=== PATIENT | female | born 1935 | race Caucasian/White ===

== ENCOUNTER → 2016-04-22 | Outpatient (CLI) | payer OTHER ==
[~2016-04-22] MED LIST: CARB1CAP19 PO; CARB25TA16 PO; CHOL100027 PO; CYAN10005 PO; ESCI10TA17 PO; FLUD0.1T10 PO; LEVO88TA PO; LORA0.5T12 PO; MELA1TAB5 PO; PANT40TA PO; POLY335025 PO; RASA1TAB PO; SNM/25100 PO; SYN100 PO
[2016-04-22 10:55] LABS: BLOOD UREA NITROGEN 18 mg/dl (7-18); BUN/CREATININE RATIO 19.3 (10-20); CALCIUM 9.2 mg/dl (8.5-10.1); CARBON DIOXIDE 31 mmol/L (21-32); CHLORIDE 105 mmol/L (98-107); CREATININE 0.92 mg/dl (0.60-1.20); GLUCOSE 87 mg/dl (70-99); SODIUM 144 mmol/L (136-145)
== END ==
LOC: C.LABFOXMH 10:22
PROVIDERS: ATTEND Internal Medicine
DX: I95.1 Orthostatic hypotension (principal)

== ENCOUNTER → 2016-04-28 | Outpatient (CLI) | payer OTHER ==
[~2016-04-28] MED LIST changes: -CYAN10005 PO
== END ==
LOC: C.LABFOXMH 10:49
PROVIDERS: ATTEND Internal Medicine
DX: R05 Cough (principal)

== ENCOUNTER → 2016-06-04 | Day surgery (SDC) | payer OTHER ==
[2016-06-03 15:23] VITALS: BMI 26.0
[~2016-06-04] VITALS: Ht 162.6 cm; Wt 68.6 kg
[~2016-06-04] MED LIST changes: -CARB25TA16 PO; +LIDOCAINE HCL 2% 2 ML VIAL (20MG/ML) ONE; +MIDAZOLAM HCL 1 MG/ML 2ML VIAL ONE; +ONDANSETRON INJ 2 MG/ML 2 ML VIAL ONE; +PROPOFOL IV EMULSION 10 MG/ML 20 ML VIAL IV ONE; -SNM/25100 PO; +SODIUM CHLORIDE 0.9% 500ML 500 ML IV ONE; -SYN100 PO
[2016-06-04 08:22] VITALS: Ht 162.6 cm; Wt 68.6 kg
[2016-06-04 08:33] VITALS: TEMP 36.8
--- NOTE | 2016-06-04 08:43 | Endo History and Physical ---
History & Physical Date of Service: Jun 04, 2016. Chief Complaint: DYSPHAGIA, REFLUX Referring Physician: DR. LEW LUGO History of Present Illness 81 yo CF who presents for EGD secondary to dysphagia and GERD. Past Medical History Neurological Disorder Past Surgical History Hx Cardiac Surgery: No Hx Internal Defibrillator: No Hx Pacemaker: No Hx Post-Op Nausea and Vomiting: No Hx Cancer Surgery: No Hx Thoracic Surgery: No Hx Orthopedic: Yes (RT TKA, RIGHT SHOULDER ARTHROSCOY) Hx Urinary Tract Surgery: No Family History None Social History Smoking Status: Never Smoker Hx Substance Use: No Hx Alcohol Use: No Allergies Coded Allergies: Grass (Verified Allergy, Unknown, SNEEZING, RUNNY EYES, 06/03/16) Codeine (Verified Adverse Reaction, Intermediate, NAUSEA, PASSED OUT, 06/03) Current Medications Reported Home Medications Medications Dose Route/Sig Max Daily Dose Days Date Category Dose Instructions Kp Melatonin (Melatonin) 3 Mg Tab 1 Tab PO HS 06/03/16 Reported Rytary 23.75-95 mg (Carbidopa-Levodopa) 1 Cap Cap 1 Tab PO QID 06/03/16 Reported 6A 10A 2P 6P Lexapro (Escitalopram Oxalate) 10 Mg Tab 10 Mg PO QAM 06/03/16 Reported Synthroid (Levothyroxine Sodium) 88 Mcg Tab 88 Mcg PO QAM 06/03/16 Reported Florinef (Fludrocortisone Acetate) 0.1 Mg Tab 2 Tab PO QAM 04/13/13 Reported Miralax (Polyethylene Glycol 3350) 1 Pow Pow PO QAM 01/22/13 Reported Lorazepam 0.5 Mg Tab 1 Tab PO HS 12/01/12 Reported Protonix (Pantoprazole Sodium) 40 Mg Tab 40 Mg PO QAM 12/01/12 Reported Azilect (Rasagiline Mesylate) 1 Mg Tab 0.5 Mg PO QAM 11/05/12 Reported Vitamin D 1000 Unit (Cholecalciferol) 1,000 Unit Cap 2,000 Inter.unit PO QAM 09/17/11 Reported Vital Signs Weight (Kilograms): 68.64 Height (Feet): 5 Height (Inches): 4 Date Time Temp Pulse Resp B/P Pulse Ox O2 Delivery O2 Flow Rate FiO2 06/04/16 08:33 36.8 72 18 165/83 98 Room Air Physical Exam General Appearance: WD/WN, no apparent distress Respiratory/Chest: Auscultation: breath sounds normal Cardiovascular: Heart Auscultation: RRR Abdomen: Bowel Sounds: normal Inspection & Palpation: soft, non-distended, no tenderness, guarding & rebound Assessment and Plan Assessment: 81 yo CF who presents for EGD secondary to dysphagia and GERD. Plan: Proceed with EGD.
--- NOTE | 2016-06-04 09:47 | Discharge Instructions ---
Endoscopy Patient Instructions Date / Procedure(s) Performed Jun 04, 2016. EGD Allergy Information Coded Allergies: Grass (Verified Allergy, Unknown, SNEEZING, RUNNY EYES, 06/03/16) Codeine (Verified Adverse Reaction, Intermediate, NAUSEA, PASSED OUT, 06/03) Discharge Date / Findings Jun 04, 2016. Schatzki's Ring s/p dilation Hiatal hernia Medication Instructions OK to resume all medications today as prescribed. Reported Home Medications Medications Dose Route/Sig Max Daily Dose Days Date Category Dose Instructions Kp Melatonin (Melatonin) 3 Mg Tab 1 Tab PO HS 06/03/16 Reported Rytary 23.75-95 mg (Carbidopa-Levodopa) 1 Cap Cap 1 Tab PO QID 06/03/16 Reported 6A 10A 2P 6P Lexapro (Escitalopram Oxalate) 10 Mg Tab 10 Mg PO QAM 06/03/16 Reported Synthroid (Levothyroxine Sodium) 88 Mcg Tab 88 Mcg PO QAM 06/03/16 Reported Florinef (Fludrocortisone Acetate) 0.1 Mg Tab 2 Tab PO QAM 04/13/13 Reported Miralax (Polyethylene Glycol 3350) 1 Pow Pow PO QAM 01/22/13 Reported Lorazepam 0.5 Mg Tab 1 Tab PO HS 12/01/12 Reported Protonix (Pantoprazole Sodium) 40 Mg Tab 40 Mg PO QAM 12/01/12 Reported Azilect (Rasagiline Mesylate) 1 Mg Tab 0.5 Mg PO QAM 11/05/12 Reported Vitamin D 1000 Unit (Cholecalciferol) 1,000 Unit Cap 2,000 Inter.unit PO QAM 09/17/11 Reported Provider Instructions Activity Restrictions - No exercising or heavy lifting for 24 hours. - Do not drink alcohol the day of the procedure. - Do not drive a car or operate machinery until the day after the procedure. - Do not make any important decisions or sign important papers in 24 hours after the procedure. Following Day: - Return to full activity which may include returning to work/school. Diet Start your diet with liquids and light foods (jello, soup, juice, toast). Then eat your usual diet if not nauseated. Treatment For Common After Affects For mild abdominal pain, bloating, or excessive gas: - Rest - Eat lightly - Lie on right side Follow-Up Information Follow-up with DR. LEW LUGO as scheduled Anesthesia Information What You Should Know You have had a procedure that required some medicine to reduce anxiety and discomfort. This treatment is called moderate sedation. After receiving the treatment, you may be sleepy, but you will be able to breathe on your own. The effects of the treatment may last for several hours. Follow these instructions along with Activity/Diet recommendations noted above: * Do NOT do anything where dizziness or clumsiness would be dangerous. * Rest quietly at home today, then you can be up and about tomorrow. * Have a responsible person stay with you the rest of today. * You may have had an I.V. today. If so, you may take the dressing off later today. Recommendations Call your doctor if: * Trouble breathing * Continuous vomiting for more than 24 hours * Temperature above 101 degrees * Severe abdominal pain or bloating * Pain not relieved by pain medicine ordered * There is increased drainage or redness from any incision * A large amount of rectal bleeding greater than 2-3 tablespoons. (If you had a polyp/s removed or have hemorrhoids, a small amount of blood - from the rectum is to be expected.) * You have any unanswered questions or concerns. IN THE EVENT OF A SERIOUS EMERGENCY, GO TO THE NEAREST EMERGENCY ROOM Your discharge instructions were prepared by provider Santana Cornejo. Patient Instructions Signature Page Ellen Cabrera Patient (or Guardian) Signature/Date: I have read and understand the instructions given to me by my caregivers. Caregiver/RN/Doctor Signature/Date: The above-named patient and/or guardian has received patient instructions on this date. + Original Patient Signature Page (only) stays with chart. Please make copy for patient.
--- NOTE | 2016-06-04 09:47 | GI REPORT ---
Procedure Date: 06/04/2016 9:02 AM Procedure: Upper GI endoscopy Indications: Dysphagia Medicines: Monitored Anesthesia Care Complications: No immediate complications. Estimated Blood Loss: Estimated blood loss: none. Procedure: Pre-Anesthesia Assessment: - Prior to the procedure, a History and Physical was performed, and patient medications and allergies were reviewed. The patient's tolerance of previous anesthesia was also reviewed. The risks and benefits of the procedure and the sedation options and risks were discussed with the patient. All questions were answered, and informed consent was obtained. Prior Anticoagulants: The patient has taken no previous anticoagulant or antiplatelet agents. ASA Grade Assessment: III - A patient with severe systemic disease. After reviewing the risks and benefits, the patient was deemed in satisfactory condition to undergo the procedure. After obtaining informed consent, the endoscope was passed under direct vision. Throughout the procedure, the patient's blood pressure, pulse, and oxygen saturations were monitored continuously. The On-site loaner was introduced through the mouth, and advanced to the second part of duodenum. The upper GI endoscopy was accomplished without difficulty. The patient tolerated the procedure well. Findings: A mild Schatzki ring (acquired) was found at the gastroesophageal junction. A TTS dilator was passed through the scope. Dilation with a 15-16.5-18 mm balloon (to a maximum balloon size of 18 mm) dilator was performed. The dilation site was examined and showed mild improvement in luminal narrowing. A small hiatus hernia was present. The examined duodenum was normal. Impression: - Mild Schatzki ring. Dilated. - Small hiatus hernia. - Normal examined duodenum. - No specimens collected. Recommendation: - Resume previous diet. - Continue present medications. - Repeat the upper endoscopy PRN for retreatment. - Return to primary care physician as previously scheduled. Santana Cornejo DO 06/04/2016 9:46:39 AM This report has been signed electronically. Note Initiated On: 06/04/2016 9:02 AM I attest to the content of the Intraoperative Record and orders documented therein, exceptions below
--- NOTE | 2016-06-04 10:16 | Anesthesiology Progress Note ---
Anesthesia Post Op Note Date & Time Jun 04, 2016 at 10:16 Vital Signs Pain Intensity: 0 Vital Signs Past 12 Hours Date Time Temp Pulse Resp B/P Pulse Ox O2 Delivery O2 Flow Rate FiO2 06/04/16 10:03 78 18 144/85 95 Room Air 06/04/16 09:48 71 16 135/68 98 Room Air 06/04/16 08:33 36.8 72 18 165/83 98 Room Air Notes Mental Status: alert / awake / arousable, participated in evaluation Pt Amnestic to Procedure: Yes Nausea / Vomiting: adequately controlled Pain: adequately controlled Airway Patency, RR, SpO2: stable & adequate BP & HR: stable & adequate Hydration State: stable & adequate Anesthetic Complications: no major complications apparent
[2016-06-04 10:18] VITALS: BP 155/89; PULSE 68; O2SAT 95
== END | disposition home or self-care (01) ==
LOC: C.GI 07:56
PROVIDERS: ATTEND Internal Medicine
DX: K22.2 Esophageal obstruction (principal); K21.9 Gastro-esophageal reflux disease without esophagitis; R13.10 Dysphagia, unspecified; K44.9 Diaphragmatic hernia without obstruction or gangrene

== ENCOUNTER → 2016-08-16 | Outpatient (CLI) | payer OTHER ==
[~2016-08-16] MED LIST changes: -LIDOCAINE HCL 2% 2 ML VIAL (20MG/ML) ONE; -MIDAZOLAM HCL 1 MG/ML 2ML VIAL ONE; -ONDANSETRON INJ 2 MG/ML 2 ML VIAL ONE; -PROPOFOL IV EMULSION 10 MG/ML 20 ML VIAL IV ONE; -SODIUM CHLORIDE 0.9% 500ML 500 ML IV ONE
[2016-08-16 09:22] LABS: HEMATOCRIT 43.2 % (37-47); MEAN CORPUSCULAR HEMOGLOBIN 28.5 pg (25-34); MEAN CORPUSCULAR HGB CONC 31.7 g/dl (32-36); MEAN PLATELET VOLUME 10.7 fL (7.4-10.4); PLATELET COUNT 190 K/uL (130-400)
[2016-08-16 09:30] LABS: BLOOD UREA NITROGEN 15 mg/dl (7-18); BUN/CREATININE RATIO 18.9 (10-20); CARBON DIOXIDE 28 mmol/L (21-32); CHLORIDE 106 mmol/L (98-107); GLUCOSE 90 mg/dl (70-99); POTASSIUM 3.8 mmol/L (3.5-5.1); SODIUM 142 mmol/L (136-145)
[2016-08-16 09:36] LABS: CALCIUM 9.5 mg/dl (8.5-10.1)
[2016-08-16 09:41] LABS: THYROID STIMULATING HORMONE 0.718 uIu/ml (0.300-4.500)
== END | disposition home or self-care (01) ==
LOC: C.LABFOXMH 08:51
PROVIDERS: ATTEND Internal Medicine
DX: E01.8 Other iodine-deficiency related thyroid disorders and allied conditions (principal); I95.1 Orthostatic hypotension

== ENCOUNTER → 2016-12-22 | Outpatient (CLI) | payer OTHER ==
[2016-12-22 10:35] LABS: BLOOD UREA NITROGEN 15 mg/dl (7-18); BUN/CREATININE RATIO 17.6 (10-20); CALCIUM 9.5 mg/dl (8.5-10.1); CARBON DIOXIDE 32 mmol/L (21-32); CHLORIDE 106 mmol/L (98-107); CREATININE 0.83 mg/dl (0.60-1.20); GLUCOSE 90 mg/dl (70-99); SODIUM 140 mmol/L (136-145)
== END | disposition home or self-care (01) ==
LOC: C.LABFOXMH 09:34
PROVIDERS: ATTEND Internal Medicine
DX: I95.1 Orthostatic hypotension (principal)

== ENCOUNTER → 2017-01-04 | Outpatient (CLI) | payer OTHER ==
[2017-01-04 10:07] LABS: BLOOD UREA NITROGEN 12 mg/dl (7-18); CALCIUM 9.1 mg/dl (8.5-10.1); CARBON DIOXIDE 32 mmol/L (21-32); CHLORIDE 107 mmol/L (98-107); CREATININE 0.82 mg/dl (0.60-1.20); GLUCOSE 90 mg/dl (70-99); POTASSIUM 3.3 mmol/L (3.5-5.1); SODIUM 141 mmol/L (136-145)
== END | disposition home or self-care (01) ==
LOC: C.LABFOXMH 09:28
PROVIDERS: ATTEND Internal Medicine Hospice and Palliative Medicine
DX: R53.83 Other fatigue (principal)

== ENCOUNTER → 2017-03-14 | Outpatient (CLI) | payer OTHER ==
[2017-03-14 09:19] LABS: BLOOD UREA NITROGEN 19 mg/dl (7-18); BUN/CREATININE RATIO 21.7 (10-20); CALCIUM 9.3 mg/dl (8.5-10.1); CARBON DIOXIDE 27 mmol/L (21-32); CHLORIDE 104 mmol/L (98-107); CREATININE 0.86 mg/dl (0.60-1.20); GLUCOSE 111 mg/dl (70-99); POTASSIUM 3.8 mmol/L (3.5-5.1); SODIUM 139 mmol/L (136-145)
== END | disposition home or self-care (01) ==
LOC: C.LABFOXMH 08:55
PROVIDERS: ATTEND Internal Medicine Hospice and Palliative Medicine
DX: I95.1 Orthostatic hypotension (principal)

== ENCOUNTER 2017-04-10 13:05 | Emergency (ER) | payer OTHER ==
[~2017-04-10] VITALS: Ht 158.8 cm; Wt 69.4 kg
[2017-04-10 13:15] VITALS: TEMP 37.3; Ht 158.8 cm; Wt 69.4 kg
[2017-04-10] MEDS ORDERED: CYAN10005 PO (13:32)
--- NOTE | 2017-04-10 14:02 | EMERGENCY ROOM VISIT NOTE ---
History Report prepared by Wild: Emile Hernández Under the Supervision of: Dr. Nimco Brown D.O. First contact with patient: 13:33 Chief Complaint: COUGH Stated Complaint: COUGH History of Present Illness The patient is an 82 year old female who presents to the Emergency Room with complaints of a worsening cough for the past three days. The patient states that she is not bringing anything up when she coughs. She additionally notes that she has some chest pain, though this is after coughing. The patient denies any fevers, chills, leg swelling, leg pain, and abdominal pain. She has a history of Parkinson's, and she has never had pneumonia before or lung problems. Her family notes that she is usually hypotensive. The patient has never been a smoker, and she has gotten her flu shot and pneumonia shot. Source of History: patient, family Onset: three days ago Position: other (global) Quality: other (cough) Timing: worsening Associated Symptoms: + chest pain, No fevers, No chills, No abdominal pain Review of Systems See HPI for pertinent positives & negatives. A total of 10 systems reviewed and were otherwise negative. Past Medical & Surgical Medical Problems: (1) Cholecystectomy (2) Parkinson's disease Family History Patient reports no known family medical history. Social History Smoking Status: Never Smoker Alcohol Use: occasionally Marital Status: Housing Status: lives with family Current/Historical Medications Scheduled Carbidopa-Levodopa (Rytary 23.75-95 mg), 1 TAB PO QID Cholecalciferol (Vitamin D 1000 Unit), 2,000 INTER.UNIT PO QAM Cyanocobalamin (Vitamin B-12), 1,000 MCG PO DAILY Escitalopram (Lexapro), 10 MG PO QAM Fludrocortisone Acetate (Florinef), 3 TAB PO QAM Levothyroxine Sodium (Synthroid), 88 MCG PO QAM Lorazepam (Lorazepam), 1 TAB PO HS Melatonin (Kp Melatonin), 1 TAB PO HS Pantoprazole (Protonix), 40 MG PO QAM Polyethylene Glycol 3350 (Miralax), PO QAM Rasagiline Mesylate (Azilect), 0.5 MG PO QAM Allergies Coded Allergies: Grass (Verified Allergy, Unknown, SNEEZING, RUNNY EYES, 06/03/16) Codeine (Verified Adverse Reaction, Intermediate, NAUSEA, PASSED OUT, 2/16 /17) Physical Exam Vital Signs Date Time Temp Pulse Resp B/P (MAP) Pulse Ox O2 Delivery O2 Flow Rate FiO2 04/10/17 16:01 76 20 178/86 94 04/10/17 15:28 70 16 169/102 95 Room Air 04/10/17 13:57 73 18 159/103 94 Room Air 04/10/17 13:56 80 04/10/17 13:40 94 Room Air 04/10/17 13:15 37.3 116 20 175/87 97 Room Air Physical Exam HEENT: Head - normocephalic and atraumatic Pupils are equal, round, and reactive to light. Extraocular eye muscles are intact, and sclera are anicteric. Nose - moist nasal mucosa without discharge. Mouth - moist buccal mucosa. Oropharynx is nonerythematous and there is no tonsillar exudate or edema noted. Neck: Supple; no JVD, nuchal rigidity, cervical lymphadenopathy, or auscultated bruits. Heart: Regular rate and rhythm. There is a normal S1 and S2 with no murmurs, clicks, or gallops appreciated. Lungs: Clear to auscultation bilaterally with no wheezes, rales, or rhonchi. Abdomen: Soft, completely nontender, nondistended, with good bowel sounds. There are no palpable pulsatile masses or hepatosplenomegaly. There is no guarding, rigidity, or rebound noted. Extremities: No evidence of cyanosis, clubbing, or edema. There are easily palpable peripheral pulses. Skin: warm and dry with good turgor and no rashes. Medical Decision & Procedures ER Provider Diagnostic Interpretation: Radiology results as stated below per my review and the radiologist's interpretation: CHEST 2 VIEWS ROUTINE CLINICAL HISTORY: Persistent cough COMPARISON STUDY: 11/05/2012 FINDINGS: A presumed stimulator generator battery pack projects over the right hemithorax. The heart is at the upper limits of normal in size. There is no failure. There is no focal pulmonary consolidation. There are no pleural effusions.[ IMPRESSION: No active disease in the chest. Electronically signed by: Beny Nieves M.D. 04/10/2017 3:26 PM Dictated Date/Time: 04/10/2017 3:25 PM Laboratory Results 04/10/17 13:40 Red Blood Count 4.58, Mean Corpuscular Volume 89.7, Mean Corpuscular Hemoglobin 29.7, Mean Corpuscular Hemoglobin Concent 33.1, Mean Platelet Volume 10.4, Neutrophils (%) (Auto) 49.9, Lymphocytes (%) (Auto) 28.1, Monocytes (%) (Auto) 17.9, Eosinophils (%) (Auto) 3.5, Basophils (%) (Auto) 0.6, Neutrophils # (Auto ) 1.56, Lymphocytes # (Auto) 0.88, Monocytes # (Auto) 0.56, Eosinophils # (Auto ) 0.11, Basophils # (Auto) 0.02 04/10/17 13:40 Test 04/10/17 13:40 White Blood Count 3.13 K/uL (4.8-10.8) Red Blood Count 4.58 M/uL (4.2-5.4) Hemoglobin 13.6 g/dL (12.0-16.0) Hematocrit 41.1 % (37-47) Mean Corpuscular Volume 89.7 fL (80-100) Mean Corpuscular Hemoglobin 29.7 pg (25-34) Mean Corpuscular Hemoglobin Concent 33.1 g/dl (32-36) Platelet Count 148 K/uL (130-400) Mean Platelet Volume 10.4 fL (7.4-10.4) Neutrophils (%) (Auto) 49.9 % Lymphocytes (%) (Auto) 28.1 % Monocytes (%) (Auto) 17.9 % Eosinophils (%) (Auto) 3.5 % Basophils (%) (Auto) 0.6 % Neutrophils # (Auto) 1.56 K/uL (1.4-6.5) Lymphocytes # (Auto) 0.88 K/uL (1.2-3.4) Monocytes # (Auto) 0.56 K/uL (0.11-0.59) Eosinophils # (Auto) 0.11 K/uL (0-0.5) Basophils # (Auto) 0.02 K/uL (0-0.2) RDW Standard Deviation 45.5 fL (36.4-46.3) RDW Coefficient of Variation 13.8 % (11.5-14.5) Immature Granulocyte % (Auto) 0.0 % Immature Granulocyte # (Auto) 0.00 K/uL (0.00-0.02) Anion Gap 6.0 mmol/L (3-11) Est Creatinine Clear Calc Drug Dose 41.2 ml/min Estimated GFR () 61.9 Estimated GFR (Non- 53.4 BUN/Creatinine Ratio 16.6 (10-20) Calcium Level 9.1 mg/dl (8.5-10.1) Total Bilirubin 0.4 mg/dl (0.2-1) Aspartate Amino Transf (AST/SGOT) 23 U/L (15-37) Alanine Aminotransferase (ALT/SGPT) 12 U/L (12-78) Alkaline Phosphatase 109 U/L (45-117) Total Creatine Kinase 117 U/L (26-192) Creatine Kinase MB 1.9 ng/ml (0.5-3.6) Creatine Kinase MB Ratio 1.6 (0-3.0) Troponin I < 0.015 ng/ml (0-0.045) Pro-B-Type Natriuretic Peptide 422 pg/ml (0-1800) Total Protein 7.2 gm/dl (6.4-8.2) Albumin 3.6 gm/dl (3.4-5.0) Globulin 3.6 gm/dl (2.5-4.0) Albumin/Globulin Ratio 1.0 (0.9-2) Laboratory results per my review. ECG Indication: other (cough) Rate (beats per minute): 71 Rhythm: normal sinus Findings: no acute ischemic change, no ectopy ED Course 1352: Past medical records reviewed. The patient was evaluated in room A2. A complete history and physical exam was performed. An EKG was obtained. Chest x -ray was obtained and was unremarkable. Labs were drawn as above. 1546: Upon reevaluation, she is doing well. I discussed findings and results with her. She verbalized agreement of the treatment plan. She was discharged home. Medical Decision The patient is a 82 year old female who presents to the ED with a cough. Differential diagnosis includes bronchitis, pneumonia, and influenza Lab results: White blood cell count of 3.1, stable H&H, normal renal function, normal glucose, normal cardiac enzymes, and BNP 422 The patient presents to the emergency department with persistent cough. The patient has no fever or shortness of breath. She has no chest pain. Chest x-ray was unremarkable. The patient appears hemodynamically stable. She did not appear to have much cough while here in the emergency department. I've asked him to follow-up with Dr. Willams Medication Reconcilliation Current Medication List: was personally reviewed by me Blood Pressure Screening Patient's blood pressure: Elevated blood pressure Blood pressure disposition: Referred to PCP Impression Primary Impression: Cough Scribe Attestation The scribe's documentation has been prepared under my direction and personally reviewed by me in its entirety. I confirm that the note above accurately reflects all work, treatment, procedures, and medical decision making performed by me. Departure Information Dispostion Home / Self-Care Referrals Alecia Tavarez (PCP) Forms HOME CARE DOCUMENTATION FORM, IMPORTANT VISIT INFORMATION Patient Instructions My [facility] Additional Instructions Rest. Keep yourself well-hydrated. Sleep propped up. Follow up on . with Dr. Willams
[2017-04-10 14:07] LABS: BASO % 0.6 %; BASO ABS # 0.02 K/uL (0-0.2); COMPLETE YES; EOS % 3.5 %; HEMATOCRIT 41.1 % (37-47); LYMPH % 28.1 %; LYMPH ABS # 0.88 K/uL (1.2-3.4); MEAN CELL VOLUME 89.7 fL (80-100); MEAN CORPUSCULAR HEMOGLOBIN 29.7 pg (25-34); MEAN CORPUSCULAR HGB CONC 33.1 g/dl (32-36); MEAN PLATELET VOLUME 10.4 fL (7.4-10.4); MONO % 17.9 %; NEUT % 49.9 %; PLATELET COUNT 148 K/uL (130-400); RED BLOOD COUNT 4.58 M/uL (4.2-5.4); WHITE BLOOD COUNT 3.13 K/uL (4.8-10.8)
[2017-04-10 14:22] LABS: ALT/SGPT 12 U/L (12-78); AST/SGOT 23 U/L (15-37); BLOOD UREA NITROGEN 16 mg/dl (7-18); BUN/CREATININE RATIO 16.6 (10-20); CALCIUM 9.1 mg/dl (8.5-10.1); CARBON DIOXIDE 30 mmol/L (21-32); CHLORIDE 101 mmol/L (98-107); CREATININE 0.99 mg/dl (0.60-1.20); GLUCOSE 98 mg/dl (70-99); POTASSIUM 3.5 mmol/L (3.5-5.1); SODIUM 137 mmol/L (136-145)
[2017-04-10 14:27] LABS: ALKALINE PHOSPHATASE 109 U/L (45-117); CKMB/CK RATIO 1.6 (0-3.0)
--- NOTE | 2017-04-10 15:28 | DIAGNOSTIC IMAGING REPORT ---
CHEST 2 VIEWS ROUTINE CLINICAL HISTORY: Persistent cough COMPARISON STUDY: 11/05/2012 FINDINGS: A presumed stimulator generator battery pack projects over the right hemithorax. The heart is at the upper limits of normal in size. There is no failure. There is no focal pulmonary consolidation. There are no pleural effusions.[ IMPRESSION: No active disease in the chest. Electronically signed by: Beny Nieves M.D. 04/10/2017 3:26 PM Dictated Date/Time: 04/10/2017 3:25 PM
[2017-04-10 16:01] VITALS: BP 178/86; PULSE 76; O2SAT 94
== END 2017-04-10 16:02 | disposition home or self-care (01) ==
LOC: C.EDB 13:07 → C.EDA 16:02
DX: R05 Cough (principal); G20 Parkinson's disease

== ENCOUNTER 2017-05-29 13:54 | Inpatient (IN) | payer OTHER ==
[~2017-05-29] VITALS: Ht 157.5 cm; Wt 70.0 kg
[~2017-05-29 13:54] MED LIST changes: +CYAN10005 PO
[2017-05-29] MEDS ORDERED: ACETAMINOPHEN IV 650 MG in EMPTY BAG 0 ML IV STA (14:12)
[2017-05-29] MEDS ORDERED: SODIUM CHLORIDE 0.9% 1000ML 1,000 ML IV STA (14:12)
--- NOTE | 2017-05-29 14:20 | EMERGENCY ROOM VISIT NOTE ---
History Report prepared by Wild: Truong Cedeño Under the Supervision of: Dr. Analia Candelario M.D. First contact with patient: 13:57 Chief Complaint: FALL Stated Complaint: FALL/HIP PAIN History of Present Illness The patient is an 82 year old female who presents to the Emergency Room with complaints of constant, left hip pain beginning prior to arrival. The patient states she caught her toe on her 's wheelchair and fell onto her hip. She reports she can still move her hip, but it is tender to touch it. The patient notes she did not get pain medication in the ambulance. She denies hitting her head, losing consciousness, taking blood thinner, taking aspirin, and neck pain. The patient states two nurses helped her up from the ground, but she would have been able to get up on her own if needed. The patient's family states she received a call from [employer] about the fall, and she was told the patient seemed mildly altered. EMS reports the patient was brought to the ED because she was hypertensive after the fall. Pt states she is typically hypotensive. Source of History: patient Onset: prior to arrival Position: other (left hip) Timing: constant Associated Symptoms: No LOC, No neck pain Note: Per Corby: mild AMS Denies: hitting her head Review of Systems See HPI for pertinent positives & negatives. A total of 10 systems reviewed and were otherwise negative. Past Medical & Surgical Medical Problems: (1) Cholecystectomy (2) Hip fracture (3) Parkinson's disease Family History Gallbladder disease Social History Smoking Status: Never Smoker Alcohol Use: occasionally Marital Status: Housing Status: assisted living Occupation Status: retired Current/Historical Medications Scheduled Carbidopa-Levodopa (Rytary 23.75-95 mg), 1 TAB PO QID Cholecalciferol (Vitamin D 1000 Unit), 2,000 INTER.UNIT PO QAM Cyanocobalamin (Vitamin B-12), 1,000 MCG PO DAILY Escitalopram (Lexapro), 10 MG PO QAM Fludrocortisone Acetate (Florinef), 0.3 MG PO QAM Levothyroxine Sodium (Synthroid), 75 MCG PO DAILY Lorazepam (Lorazepam), 1 TAB PO HS Meloxicam (Mobic), 15 MG PO DAILY Metronidazole (Topical) (Metrocream), 1 APPLN TOP BID Midodrine (Midodrine HCl), 2.5 MG PO TID Pantoprazole (Protonix), 40 MG PO QAM Polyethylene Glycol 3350 (Miralax), PO QAM Potassium Chloride (Micro-K Ext Rel), 10 MEQ PO DAILY Rasagiline Mesylate (Rasagiline Mesylate), 0.5 MG PO QAM Allergies Coded Allergies: Grass (Verified Allergy, Unknown, SNEEZING, RUNNY EYES, 05/29/17) Codeine (Verified Adverse Reaction, Intermediate, NAUSEA, PASSED OUT, 05/29) Physical Exam Vital Signs Date Time Temp Pulse Resp B/P (MAP) Pulse Ox O2 Delivery O2 Flow Rate FiO2 05/29/17 18:31 71 162/92 93 Room Air 05/29/17 17:00 71 151/81 92 Room Air 05/29/17 16:00 79 18 176/98 95 Room Air 05/29/17 14:31 80 05/29/17 14:09 37.1 77 168/92 94 Room Air Physical Exam Vital signs reviewed. General: Elderly, chronically ill-appearing 82 year old female, in no significant distress. HEENT: No scleral icterus, PERRLA, neck supple. Atraumatic. Cardiovascular: Regular rate and rhythm, no extra sounds. Pulmonary: Clear to auscultation bilaterally, normal work of breathing. Abdomen: Soft, nontender, nondistended, positive bowel sounds. Musculoskeletal: Atraumatic, no peripheral edema. Tenderness to the low lumbar spine along the left paraspinous muscles. Tenderness to the left iliac crest. Full ROM of the left hip,with pain. Neurologic: Patient awake alert and oriented x 3, full strength in all 4 extremities. Cranial nerves 2 through 12 grossly intact. Patient has a spacey affect but answers all questions appropriately. Follows commands appropriately. Skin: Warm, dry, no rash Medical Decision & Procedures Laboratory Results Test 05/29/17 14:33 05/29/17 14:46 05/29/17 15:49 05/29/17 16:02 Est Creatinine Clear Calc Drug Dose 43.5 ml/min Total Bilirubin 0.6 mg/dl (0.2-1) Alanine Aminotransferase (ALT/SGPT) 12 U/L (12-78) Alkaline Phosphatase 78 U/L (45-117) Total Protein 7.0 gm/dl (6.4-8.2) Albumin 3.5 gm/dl (3.4-5.0) Bedside Troponin I < 0.030 ng/ml (0-0.045) Urine Color YELLOW Urine Appearance CLEAR (CLEAR) Urine pH 7.5 (4.5-7.5) Urine Specific [place] 1.006 (1.000-1.030) Urine Protein NEG (NEG) Urine Glucose (UA) NEG (NEG) Urine Ketones NEG (NEG) Urine Occult Blood NEG (NEG) Urine Nitrite NEG (NEG) Urine Bilirubin NEG (NEG) Urine Urobilinogen NEG (NEG) Urine Leukocyte Esterase NEG (NEG) Direct Bilirubin 0.2 mg/dl (0-0.2) Aspartate Amino Transf (AST/SGOT) 21 U/L (15-37) Laboratory results per my review. Medications Administered Medications (Trade) Dose Ordered Sig/Pravin Route Start Time Stop Time Status Last Admin Dose Admin Sodium Chloride 1,000 ml @ 125 mls/hr Q8H STAT IV 05/29/17 14:12 05/29/17 20:03 DC 05/29/17 14:34 125 MLS/HR Acetaminophen 650 mg/Empty Bag 65 ml @ 260 mls/hr NOW STAT IV 05/29/17 14:12 05/29/17 14:26 DC 05/29/17 14:35 260 MLS/HR Potassium Chloride (Klor-Con M10) 40 meq NOW STAT PO 05/29/17 17:20 05/29/17 18:27 DC 05/29/17 18:40 40 MEQ Hydromorphone HCl (Dilaudid Inj) 0.25 mg Q20M PRN IV 05/29/17 18:00 06/12/17 17:59 05/29/17 22:18 0.25 MG ECG Indication: weakness Rate (beats per minute): 80 Rhythm: normal sinus Findings: other (T-wave flattening in the inferior and anteriolateral leads. LVH. Likely previouse septal infarct. Poor baseline for interpretion.) Change: Patient's electrocardiogram interpreted by me. ED Course 1359: Past medical records reviewed. The patient was evaluated in room C01B. A complete history and physical examination was performed. 1412: Ordered Acetaminophen 650mg/Empty Bag 65ml @ 260mls/hr IV, Sodium Chloride 1000 ml @ 125 mls/hr IV Medical Decision DDx: Intracranial injury, cervical spine injury, intrathoracic injury, intra- abdominal injury, musculoskeletal injury. This pt was evaluated and appeared to be in no distress. IV access was obtained and lab work was drawn. Pt was place don the atlassian administrator. Pt was given IV acetaminophen, hydrated with NSS. XR performed and reveals a subcapital left femur fracture. Lumbar spine films were canceled as pt was not able to tolerate positioning. L knee XR was performed as pt c/o knee pain in XR. Head CT is negative for acute traumatic findings. Pt and family were advised of the findings. Pt will be evaluated for admission by the hospitalist service with orthopeadic consult. Head Trauma GCS Score: 15 Medication Reconcilliation Current Medication List: was personally reviewed by me Blood Pressure Screening Patient's blood pressure: Elevated blood pressure Blood pressure disposition: Referred to PCP Impression Primary Impression: Subcapital fracture of left femur Scribe Attestation The scribe's documentation has been prepared under my direction and personally reviewed by me in its entirety. I confirm that the note above accurately reflects all work, treatment, procedures, and medical decision making performed by me. Departure Information Referrals Ayo Willams M.D. (PCP) Patient Instructions My [facility]
[2017-05-29 14:50] LABS: BASO % 0.2 %; BASO ABS # 0.01 K/uL (0-0.2); EOS % 1.7 %; EOS ABS # 0.08 K/uL (0-0.5); HEMATOCRIT 39.8 % (37-47); HEMOGLOBIN 13.2 g/dL (12.0-16.0); IG# 0.01 K/uL (0.00-0.02); LYMPH % 20.4 %; LYMPH ABS # 0.94 K/uL (1.2-3.4); MEAN CELL VOLUME 88.4 fL (80-100); MEAN CORPUSCULAR HEMOGLOBIN 29.3 pg (25-34); MEAN CORPUSCULAR HGB CONC 33.2 g/dl (32-36); MEAN PLATELET VOLUME 10.7 fL (7.4-10.4); MONO % 9.8 %; MONO ABS # 0.45 K/uL (0.11-0.59); NEUT % 67.7 %; NEUT ABS # 3.11 K/uL (1.4-6.5); PLATELET COUNT 177 K/uL (130-400); RED CELL DISTRIBUTION WIDTH CV 13.4 % (11.5-14.5); RED CELL DISTRIBUTION WIDTH SD 43.6 fL (36.4-46.3)
[2017-05-29 15:19] LABS: ALBUMIN 3.5 gm/dl (3.4-5.0); CALCIUM 9.3 mg/dl (8.5-10.1); CREATININE 0.93 mg/dl (0.60-1.20)
[2017-05-29] MEDS ORDERED: PRMT25 PO (16:00)
[2017-05-29] MEDS ORDERED: LEVO75TA PO (16:00)
[2017-05-29] MEDS ORDERED: METR0.754 TOP (16:00)
[2017-05-29] MEDS ORDERED: POTA10CA28 PO (16:00)
[2017-05-29] MEDS ORDERED: RASA0.5T PO (16:00)
[2017-05-29] MEDS ORDERED: MELO-84 PO (16:00)
[2017-05-29 16:23] LABS: POTASSIUM 3.3 mmol/L (3.5-5.1)
--- NOTE | 2017-05-29 16:23 | DIAGNOSTIC IMAGING REPORT ---
HEAD WITHOUT CONTRAST (CT) CT DOSE: 623.48 mGy.cm HISTORY: Trauma CHI TECHNIQUE: Multiaxial CT images of the head were performed without the use of intravenous contrast. A dose lowering technique was utilized adhering to the principles of ALARA. Comparison: None. Findings: Opacified right sphenoid sinus. Mastoid air cells are clear. Operative changes consistent with bilateral electrode placement. Mild cerebral atrophy. No acute intracranial hemorrhage. Moderate chronic small vessel change throughout both cerebral hemispheres. The calvarium and skull base are intact. The ventricles and sulci are within normal limits. There is no mass, hematoma, midline shift, or acute infarct. Impression: No acute intracranial abnormality. Chronic and postoperative change. Opacified right sphenoid sinus. The above report was generated using voice recognition software. It may contain grammatical, syntax or spelling errors. Electronically signed by: Nasir Solorzano M.D. 05/29/2017 4:22 PM Dictated Date/Time: 05/29/2017 4:18 PM
[2017-05-29] MEDS ORDERED: MoRPHine SULFATE 2 MG/ML CARP IV PRN (16:30)
--- NOTE | 2017-05-29 16:55 | DIAGNOSTIC IMAGING REPORT ---
L HIP UNILATERAL 2 VIEWS CLINICAL HISTORY: L hip pain after fall trauma. Pain. COMPARISON: None. DISCUSSION: Slightly impacted subcapital fracture left hip. No evidence of dislocation. No evidence for acetabular protrusion. There is no evidence for soft tissue swelling. IMPRESSION: Slightly impacted subcapital fracture left hip. The above report was generated using voice recognition software. It may contain grammatical, syntax or spelling errors. Electronically signed by: Nasir Solorzano M.D. 05/29/2017 4:54 PM Dictated Date/Time: 05/29/2017 4:53 PM
--- NOTE | 2017-05-29 16:58 | DIAGNOSTIC IMAGING REPORT ---
L KNEE 1 OR 2 VIEWS ROUTINE CLINICAL HISTORY: L knee pain pain COMPARISON: None. DISCUSSION: The bones and joint spaces appear intact. There is no evidence of fracture, dislocation or bony disease. Mild degenerative change all major joint compartments. Chondrocalcinosis. No acute bony abnormality. IMPRESSION: Moderate degenerative change. Chondrocalcinosis. No acute bony abnormality. The above report was generated using voice recognition software. It may contain grammatical, syntax or spelling errors. Electronically signed by: Nasir Solorzano M.D. 05/29/2017 4:56 PM Dictated Date/Time: 05/29/2017 4:54 PM
[2017-05-29] MEDS ORDERED: POTASSIUM CHLORIDE 10 MEQ TABCR PO STA (17:20)
--- NOTE | 2017-05-29 17:52 | DIAGNOSTIC IMAGING REPORT ---
CHEST ONE VIEW PORTABLE CLINICAL HISTORY: fall trauma COMPARISON STUDY: 04/10/2017 FINDINGS: Mild stable cardiomegaly. Lungs are grossly clear. Mild left basilar atelectasis increased from the prior exam. IMPRESSION: Mild atelectasis left base. Chronic change. Otherwise negative study. The above report was generated using voice recognition software. It may contain grammatical, syntax or spelling errors. Electronically signed by: Nasir Solorzano M.D. 05/29/2017 5:51 PM Dictated Date/Time: 05/29/2017 5:50 PM
[2017-05-29] MEDS ORDERED: ONDANSETRON INJ 2 MG/ML 2 ML VIAL IV PRN (18:00)
[2017-05-29] MEDS ORDERED: SOD PHOSPHATE/SOD BIPHOSPHATE ENEMA 132 ML BTL PR PRN (18:00)
[2017-05-29] MEDS ORDERED: MAGNESIUM HYDROXIDE SUSP 30 ML UDC PO PRN (18:00)
[2017-05-29] MEDS ORDERED: POLYETHYLENE (MIRALAX) 17 GM PACK PO PRN (18:00)
[2017-05-29] MEDS ORDERED: NALOXONE HCL 0.4 MG/1 ML VIAL/CARP IV PRN (18:00)
[2017-05-29] MEDS ORDERED: HYDROmorphone INJ 0.5 MG/0.5 ML SYR IV PRN ×2 (18:00)
[2017-05-29] MEDS ORDERED: BISACODYL 10 MG SUPP PR PRN (18:00)
[2017-05-29 19:40] VITALS: BP 165/93; PULSE 66; TEMP 36.5; O2SAT 95
[2017-05-29] MEDS: D5W AND 1/2NSS 1,000 ML IV SCH (20:14)
--- NOTE | 2017-05-29 20:56 | Orthopedic Consultation ---
Orthopedic Consultation Date of Consultation: May 29, 2017. Attending Physician: Alethea Villagomez MD Reason for Consultation: Left hip fracture History of Present Illness Mrs. Cabrera is an 82 year old female who had a mechanical ground level fall this afternoon. She tripped over her 's wheelchair that she was pushing , and fell directly onto her left hip. She denies any other injury other than her left hip. She denies any dizziness, lightheadedness, or loss of consciousness. She had immediate pain and inability to bear weight on her left leg. Past Medical/Surgical History Medical Problems: (1) Cough Status: Acute Family History Gallbladder disease Social History Smoking Status: Never Smoker Marital Status: Housing Status: lives with family Allergies Coded Allergies: Grass (Verified Allergy, Unknown, SNEEZING, RUNNY EYES, 05/29/17) Codeine (Verified Adverse Reaction, Intermediate, NAUSEA, PASSED OUT, 05/29) Home Medications Scheduled Carbidopa-Levodopa (Rytary 23.75-95 mg), 1 TAB PO QID Cholecalciferol (Vitamin D 1000 Unit), 2,000 INTER.UNIT PO QAM Cyanocobalamin (Vitamin B-12), 1,000 MCG PO DAILY Escitalopram (Lexapro), 10 MG PO QAM Fludrocortisone Acetate (Florinef), 0.3 MG PO QAM Levothyroxine Sodium (Synthroid), 75 MCG PO DAILY Lorazepam (Lorazepam), 1 TAB PO HS Meloxicam (Mobic), 15 MG PO DAILY Metronidazole (Topical) (Metrocream), 1 APPLN TOP BID Midodrine (Midodrine HCl), 2.5 MG PO TID Pantoprazole (Protonix), 40 MG PO QAM Polyethylene Glycol 3350 (Miralax), PO QAM Potassium Chloride (Micro-K Ext Rel), 10 MEQ PO DAILY Rasagiline Mesylate (Rasagiline Mesylate), 0.5 MG PO QAM Current Inpatient Medications Current Inpatient Medications Medications (Trade) Dose Ordered Sig/Pravin Route Start Time Stop Time Status Last Admin Dose Admin Dextrose/Sodium Chloride 1,000 ml @ 75 mls/hr [id number] IV 05/29/17 20:00 06/28/17 19:59 05/29/17 20:14 75 MLS/HR Cefazolin Sodium 2000 mg/Dextrose 65 ml @ 120 mls/hr PREOP IV 05/30/17 06:00 05/31/17 05:59 UNV Ondansetron HCl (Zofran Inj) 4 mg Q6H PRN IV 05/29/17 18:00 06/28/17 17:59 Hydromorphone HCl (Dilaudid Inj) 0.25 mg Q20M PRN IV 05/29/17 18:00 06/12/17 17:59 Hydromorphone HCl (Dilaudid Inj) 0.5 mg Q20M PRN IV 05/29/17 18:00 06/12/17 17:59 Naloxone HCl (Narcan Inj) 0.1 mg PRN PRN IV 05/29/17 18:00 06/28/17 17:59 Senna/Docusate Sodium (Senokot S Tab) 2 tab HS PO 05/29/17 21:00 06/28/17 20:59 Polyethylene (Miralax Powder Packet) 17 gm DAILY PRN PO 05/29/17 18:00 06/28/17 17:59 Magnesium Hydroxide (Milk Of Magnesia Susp) 30 ml DAILY PRN PO 05/29/17 18:00 06/28/17 17:59 Bisacodyl (Dulcolax Supp) 10 mg DAILY PRN [place] 05/29/17 18:00 06/28/17 17:59 Sodium Biphosphate/ Sodium Phosphate (Fleet Enema) 132 ml PRN PRN [place] 05/29/17 18:00 Escitalopram Oxalate (Lexapro Tab) 10 mg QAM PO 05/30/17 09:00 06/29/17 08:59 Fludrocortisone Acetate (Florinef Tab) 0.3 mg QAM PO 05/30/17 09:00 06/29/17 08:59 Levothyroxine Sodium (Synthroid Tab) 75 mcg DAILYBB PO 05/30/17 06:00 06/29/17 05:59 Lorazepam (Ativan Tab) 0.5 mg HS PO 05/29/17 21:00 06/28/17 20:59 Midodrine (Proamatine Tab) 2.5 mg TID PO 05/29/17 21:00 06/28/17 20:59 UNV Pantoprazole Sodium (Protonix Tab) 40 mg QAM PO 05/30/17 09:00 06/29/17 08:59 Miscellaneous Information (Order Awaiting Action) 1 ea QID PO 05/29/17 21:00 06/28/17 20:59 Miscellaneous Information (Order Awaiting Action) 1 ea QS N/A 05/29/17 21:00 06/28/17 20:59 Non-Formulary Medication (Rasagiline Mesylate ) 0.5 mg QAM PO 05/30/17 09:00 06/29/17 08:59 UNV Physical Exam Date Time Temp Pulse Resp B/P (MAP) Pulse Ox O2 Delivery O2 Flow Rate FiO2 05/29/17 20:08 37.0 75 21 164/101 94 05/29/17 19:20 37.0 75 21 164/101 94 Room Air 05/29/17 18:31 71 162/92 93 Room Air 05/29/17 17:00 71 151/81 92 Room Air 05/29/17 16:00 79 18 176/98 95 Room Air 05/29/17 14:31 80 05/29/17 14:09 37.1 77 168/92 94 Room Air Left leg: Examination of the left hip and leg reveals no gross deformity on inspection. No significant shortening or rotational deformity of the left leg compared to the right. No significant pain in the left hip with log-roll of left leg. No skin lacerations or abrasions over the left hip. No significant swelling in the left thigh. Motor and sensory intact distally in tibial and peroneal nerve distributions, with 5/5 toe and ankle dorsiflexion and plantarflexion strength. Foot is warm and well perfused. No calf tenderness to palpation. General Appearance: no apparent distress Head: normocephalic, atraumatic Laboratory Results Last 24 Hours Test 05/29/17 14:33 05/29/17 14:46 05/29/17 15:49 05/29/17 16:02 White Blood Count 4.60 K/uL Red Blood Count 4.50 M/uL Hemoglobin 13.2 g/dL Hematocrit 39.8 % Mean Corpuscular Volume 88.4 fL Mean Corpuscular Hemoglobin 29.3 pg Mean Corpuscular Hemoglobin Concent 33.2 g/dl Platelet Count 177 K/uL Mean Platelet Volume 10.7 fL Neutrophils (%) (Auto) 67.7 % Lymphocytes (%) (Auto) 20.4 % Monocytes (%) (Auto) 9.8 % Eosinophils (%) (Auto) 1.7 % Basophils (%) (Auto) 0.2 % Neutrophils # (Auto) 3.11 K/uL Lymphocytes # (Auto) 0.94 K/uL Monocytes # (Auto) 0.45 K/uL Eosinophils # (Auto) 0.08 K/uL Basophils # (Auto) 0.01 K/uL RDW Standard Deviation 43.6 fL RDW Coefficient of Variation 13.4 % Immature Granulocyte % (Auto) 0.2 % Immature Granulocyte # (Auto) 0.01 K/uL Sodium Level 139 mmol/L Potassium Level mmol/L 3.3 mmol/L Chloride Level 103 mmol/L Carbon Dioxide Level 26 mmol/L Anion Gap 11.0 mmol/L Blood Urea Nitrogen 16 mg/dl Creatinine 0.93 mg/dl Est Creatinine Clear Calc Drug Dose 43.5 ml/min Estimated GFR () 66.8 Estimated GFR (Non- 57.6 BUN/Creatinine Ratio 17.3 Random Glucose 102 mg/dl Calcium Level 9.3 mg/dl Magnesium Level mg/dl 2.1 mg/dl Total Bilirubin 0.6 mg/dl Direct Bilirubin mg/dl 0.2 mg/dl Aspartate Amino Transf (AST/SGOT) U/L 21 U/L Alanine Aminotransferase (ALT/SGPT) 12 U/L Alkaline Phosphatase 78 U/L Total Protein 7.0 gm/dl Albumin 3.5 gm/dl Bedside Troponin I < 0.030 ng/ml Urine Color YELLOW Urine Appearance CLEAR Urine pH 7.5 Urine Specific [place] 1.006 Urine Protein NEG Urine Glucose (UA) NEG Urine Ketones NEG Urine Occult Blood NEG Urine Nitrite NEG Urine Bilirubin NEG Urine Urobilinogen NEG Urine Leukocyte Esterase NEG Radiology: Left hip and knee Xrays were independently reviewed by me. Hip Xrays show a valgus-impacted femoral neck fracture. Cross-table lateral is suboptimal and very difficult to see along the femoral neck, but no obvious apex anterior angulation. Knee Xrays show mild tricompartmental degenerative change, but joint spaces overall well maintained. Chondrocalcinosis noted in the medial compartment. Assessment & Plan (1) Fracture of femoral neck, left Assessment & Plan: Mrs. Cabrera has a left hip valgus-impacted femoral neck fracture. The lateral Xray is suboptimal and difficult to interpret, but no obvious significant displacement. She denies significant pain in the hip with log-roll of the leg, suggesting relative stability of the fracture pattern. She may therefore be a good candidate for CRPP. We briefly discussed CRPP vs hip hemiarthroplasty, including the pros and cons of each approach. This will be discussed further with her by her surgical team tomorrow. NPO after midnight tonight for surgery. I am covering Orthopedic Surgery call for Dr. Cabrera, who is unavailable. Alex Hess MD Problem Qualifiers (1) Fracture of femoral neck, left: Encounter type: initial encounter Fracture type: closed Qualified Codes: S72.002A - Fracture of unspecified part of neck of left femur, initial encounter for closed fracture
[2017-05-29] MEDS ORDERED: MIDODRINE 2.5 MG TAB PO SCH (21:00)
[2017-05-29] MEDS ORDERED: BACITRACIN OINT 15 GM TUBE EXT ONE (21:15)
[2017-05-29 21:55] VITALS: BP 132/82; PULSE 76
[2017-05-29 22:00] VITALS: BMI 28.2
[2017-05-29] MEDS: LORAZEPAM 0.5 MG TAB PO SCH (22:01)
[2017-05-29] MEDS: RYTARY PO SCH (22:02)
[2017-05-29] MEDS: DOCUSATE SODIUM/SENNA 50/8.6MG TAB PO SCH (22:02)
--- NOTE | 2017-05-29 22:35 | History and Physical ---
History & Physical Date & Time of Service: May 29, 2017 at 22:17 Chief Complaint: Hip Fracture Primary Care Physician: Ayo Willams M.D. History of Present Illness Source: patient, family This patient is an 82-year-old female with history of Parkinson's disease with deep brain stimulator in place, chronic diastolic CHF, hypothyroidism, orthostatic hypotension with syncope, osteopenia, GERD, and hepatic cysts, who presents to the ER after sustaining a mechanical fall resulting in a left hip valgus impacted femoral neck fracture. She reports she accidentally tripped on her 's wheelchair and sustained a fall. She did have a little bit of pain in the right elbow but that has since gone away. She has no other injuries. Did not lose consciousness or hit her head. She denies any cardiac issues. She reports she can easily go up and down a flight of stairs without chest pain or shortness of breath. Review of the records shows she had a cardiac catheterization in November 2012 for dyspnea of unknown etiology. Her left heart cath revealed clean coronary arteries, her right heart cath was also normal. Her ECG here shows LVH, but is otherwise normal. Constitutional: No problem reported Eyes: No problem reported ENT: No problem reported Respiratory: No shortness of breath, No dyspnea on exertion Cardiovascular: No chest pain Breast: No problem reported Abdomen: No problem reported Musculoskeletal: + joint pain (Left hip), chronic neck pain Female : No problem reported Neurologic: No problem reported Psychiatric: No problem reported Heme: No problem reported Endo: No problem reported Skin: No problem reported All Other Systems: Reviewed and Negative Objective - Hospitalist Objective Vital Signs Date Time Temp Pulse Resp B/P (MAP) Pulse Ox O2 Delivery O2 Flow Rate FiO2 05/29/17 20:08 37.0 75 21 164/101 94 05/29/17 19:20 37.0 75 21 164/101 94 Room Air 05/29/17 18:31 71 162/92 93 Room Air 05/29/17 17:00 71 151/81 92 Room Air 05/29/17 16:00 79 18 176/98 95 Room Air 05/29/17 14:31 80 05/29/17 14:09 37.1 77 168/92 94 Room Air Physical Exam General Appearance: WD/WN, no apparent distress Eyes: normal inspection, PERRL, EOMI, sclerae normal ENT: hearing grossly normal, pharynx normal Neck: supple, no adenopathy, thyroid normal, no carotid bruits, trachea midline Respiratory/Chest: lungs clear, normal breath sounds, no respiratory distress, no accessory muscle use, right anterior chest wall the subclavian space with palpable deep brain stimulator box in place Cardiovascular: regular rate, rhythm, no edema, no gallop, no JVD, no murmur Abdomen: normal bowel sounds, non tender, soft, no organomegaly, no pulsatile mass Extremities: no pedal edema (With good cap refill, sensation intact to light touch in the feet and toes bilaterally), + pertinent finding (Positive tenderness to palpation over the left proximal femur, no ecchymosis or edema) Neurologic/Psychiatric: alert, normal mood/affect, oriented x 3 Skin: normal color, warm/dry, no rash Lymphatic: no adenopathy Past Medical/Surgical History PMH: Parkinson's disease with deep brain stimulator in place Chronic diastolic CHF Hypothyroidism Orthostatic hypotension with syncope Osteopenia GERD with history of dilation of Schatzki's ring Anxiety disorder Hepatic cysts PSH: Cholecystectomy Right TKA Right rotator cuff repair Deep brain stimulator implanted Family History Gallbladder disease Noncontributory due to advanced age Social History Smoking Status: Never Smoker Alcohol Use: none Drug Use: none Marital Status: Housing status: lives with significant other Immunizations History of Influenza Vaccine: Yes Influenza Vaccine Date: Feb 07, 2012 History of Tetanus Vaccine?: Yes Tetanus Immunization Date: Nov 06, 2008 History of Pneumococcal: Yes Pneumococcal Date: Nov 07, 2011 History of Hepatitis B Vaccine: Unknown Multi-Drug Resistant Organisms History of MDRO: No Allergies Coded Allergies: Grass (Verified Allergy, Unknown, SNEEZING, RUNNY EYES, 05/29/17) Codeine (Verified Adverse Reaction, Intermediate, NAUSEA, PASSED OUT, 05/29) Home Medications Scheduled Carbidopa-Levodopa (Rytary 23.75-95 mg), 1 TAB PO QID Cholecalciferol (Vitamin D 1000 Unit), 2,000 INTER.UNIT PO QAM Cyanocobalamin (Vitamin B-12), 1,000 MCG PO DAILY Escitalopram (Lexapro), 10 MG PO QAM Fludrocortisone Acetate (Florinef), 0.3 MG PO QAM Levothyroxine Sodium (Synthroid), 75 MCG PO DAILY Lorazepam (Lorazepam), 1 TAB PO HS Meloxicam (Mobic), 15 MG PO DAILY Metronidazole (Topical) (Metrocream), 1 APPLN TOP BID Midodrine (Midodrine HCl), 2.5 MG PO TID Pantoprazole (Protonix), 40 MG PO QAM Polyethylene Glycol 3350 (Miralax), PO QAM Potassium Chloride (Micro-K Ext Rel), 10 MEQ PO DAILY Rasagiline Mesylate (Rasagiline Mesylate), 0.5 MG PO QAM Physical Exam Vital Signs Date Time Temp Pulse Resp B/P (MAP) Pulse Ox O2 Delivery O2 Flow Rate FiO2 05/29/17 20:08 37.0 75 21 164/101 94 05/29/17 19:20 37.0 75 21 164/101 94 Room Air 05/29/17 18:31 71 162/92 93 Room Air 05/29/17 17:00 71 151/81 92 Room Air 05/29/17 16:00 79 18 176/98 95 Room Air 05/29/17 14:31 80 05/29/17 14:09 37.1 77 168/92 94 Room Air Diagnostics Laboratory Results Results Past 24 Hours Test 05/29/17 14:33 05/29/17 14:46 05/29/17 15:49 05/29/17 16:02 Range/Units White Blood Count 4.60 4.8-10.8 K/uL Red Blood Count 4.50 4.2-5.4 M/uL Hemoglobin 13.2 12.0-16.0 g/dL Hematocrit 39.8 37-47 % Mean Corpuscular Volume 88.4 80-100 fL Mean Corpuscular Hemoglobin 29.3 25-34 pg Mean Corpuscular Hemoglobin Concent 33.2 32-36 g/dl Platelet Count 177 130-400 K/uL Mean Platelet Volume 10.7 7.4-10.4 fL Neutrophils (%) (Auto) 67.7 % Lymphocytes (%) (Auto) 20.4 % Monocytes (%) (Auto) 9.8 % Eosinophils (%) (Auto) 1.7 % Basophils (%) (Auto) 0.2 % Neutrophils # (Auto) 3.11 1.4-6.5 K/uL Lymphocytes # (Auto) 0.94 1.2-3.4 K/uL Monocytes # (Auto) 0.45 0.11-0.59 K/uL Eosinophils # (Auto) 0.08 0-0.5 K/uL Basophils # (Auto) 0.01 0-0.2 K/uL RDW Standard Deviation 43.6 36.4-46.3 fL RDW Coefficient of Variation 13.4 11.5-14.5 % Immature Granulocyte % (Auto) 0.2 % Immature Granulocyte # (Auto) 0.01 0.00-0.02 K/uL Sodium Level 139 136-145 mmol/L Potassium Level 3.3 3.5-5.1 mmol/L Chloride Level 103 98-107 mmol/L Carbon Dioxide Level 26 21-32 mmol/L Anion Gap 11.0 3-11 mmol/L Blood Urea Nitrogen 16 7-18 mg/dl Creatinine 0.93 0.60-1.20 mg/dl Est Creatinine Clear Calc Drug Dose 43.5 ml/min Estimated GFR () 66.8 Estimated GFR (Non- 57.6 BUN/Creatinine Ratio 17.3 10-20 Random Glucose 102 70-99 mg/dl Calcium Level 9.3 8.5-10.1 mg/dl Magnesium Level 2.1 1.8-2.4 mg/dl Total Bilirubin 0.6 0.2-1 mg/dl Direct Bilirubin 0.2 0-0.2 mg/dl Aspartate Amino Transf (AST/SGOT) 21 15-37 U/L Alanine Aminotransferase (ALT/SGPT) 12 12-78 U/L Alkaline Phosphatase 78 45-117 U/L Total Protein 7.0 6.4-8.2 gm/dl Albumin 3.5 3.4-5.0 gm/dl Bedside Troponin I < 0.030 0-0.045 ng/ml Urine Color YELLOW Urine Appearance CLEAR CLEAR Urine pH 7.5 4.5-7.5 Urine Specific [place] 1.006 1.000-1.030 Urine Protein NEG NEG Urine Glucose (UA) NEG NEG Urine Ketones NEG NEG Urine Occult Blood NEG NEG Urine Nitrite NEG NEG Urine Bilirubin NEG NEG Urine Urobilinogen NEG NEG Urine Leukocyte Esterase NEG NEG Microbiology Results 05/29/17 MRSA DNA Surveillance Screen, Received Pending Diagnostic Radiology Chest x-ray with mild atelectasis at the left base, deep brain stimulator implant in place-images personally reviewed by me Knee x-ray with osteoarthritis-image reviewed by me Left hip with impacted femoral neck fracture-images reviewed by me CT the head with: Opacified right sphenoid sinus. Mastoid air cells are clear. Operative changes consistent with bilateral electrode placement. Mild cerebral atrophy. No acute intracranial hemorrhage. Moderate chronic small vessel change throughout both cerebral hemispheres. The calvarium and skull base are intact. The ventricles and sulci are within normal limits. There is no mass, hematoma, midline shift, or acute infarct. Impression: No acute intracranial abnormality. Chronic and postoperative change. Opacified right sphenoid sinus. EKG Normal sinus rhythm, LVH, no acute ischemic changes Impression Assessment and Plan This patient is an 82-year-old female with history of Parkinson's disease with deep brain stimulator in place, chronic diastolic CHF, hypothyroidism, orthostatic hypotension with syncope, osteopenia, GERD, anxiety disorder, and hepatic cysts, who presents to the ER after sustaining a mechanical fall resulting in a left hip valgus impacted femoral neck fracture. She reports she accidentally tripped on her 's wheelchair and sustained a fall. She did have a little bit of pain in the right elbow but that has since gone away. She has no other injuries. Did not lose consciousness or hit her head. She denies any cardiac issues. She reports she can easily go up and down a flight of stairs without chest pain or shortness of breath. Review of the records shows she had a cardiac catheterization in November 2012 for dyspnea of unknown etiology. Her left heart cath revealed clean coronary arteries, her right heart cath was also normal. Her ECG here shows LVH, but is otherwise normal. Left hip fracture-after mechanical fall, likely an osteoporotic fracture with fall from standing height. She had a normal cardiac catheterization 4 years ago that was completely normal. She has no cardiopulmonary symptoms and can easily achieve 4 METS. She is at average risk to undergo this intermediate risk surgery and should therefore proceed with surgery as planned. She does carry a diagnosis of chronic diastolic CHF and her fluid status and renal function should be monitored closely in the perioperative period. -Orthopedic surgery consultation requested and appreciated -Ancef prior to surgery -N.p.o. after midnight except for meds-would recommend she take her Florinef and midodrine in the morning to prevent hypotension -Consult anesthesia-she may need to have her DBS turned off-I asked her daughter to bring in the device from home with which to do this -Pain control with hydromorphone -DVT prophylaxis as per orthopedics -Follow CBC postop -Check vitamin D in the morning -Restart home p.o. vitamin D after surgery, consider Forteo or Fosamax or Prolia , will need DEXA scan within 6 months -Will need PT/OT consultations postoperatively Parkinson's disease-stable with DBS in place -Anesthesia to evaluate to see if DBS needs to be turned off -Continue Azilect and Rytary-her daughter will bring in medications from home as these are not available here Orthostatic hypotension with history of syncope-stable -Continue Florinef and midodrine -Consider stress dose steroids has hypotension postoperatively Chronic diastolic CHF-no evidence of volume overload, is not on diuretics at home -Observe for changes in fluid status postoperatively Hypothyroidism-last TSH checked 1 year ago -Check TSH in the morning -Continue home dose of levothyroxine for now GERD with history of Schatzki's ring being dilated 2016-stable -Continue Protonix Anxiety disorder-stable -Continue Lorazepam as needed and Lexapro Prophylaxis-SCDs for now Disposition admitted to medical/surgical floor-will need PT/OT evaluations and possible rehab placement Full code Level of Care Med/Surg Resuscitation Status FULL RESUSCITATION VTE Prophylaxis VTE Risk Assessment Done? Y/N: Yes Risk Level: Moderate Given or contraindicated: SCD's Social Service Consult Lives in Personal Care Additional Copies To Ayo Willams M.D.
--- NOTE | 2017-05-29 23:00 | DIAGNOSTIC IMAGING REPORT ---
L HIP UNILATERAL 1 VIEW CLINICAL HISTORY: lateral view of hip, unable to access fx on previous lateral XR fracture COMPARISON: Hip same date DISCUSSION: High probability of a subcapital fracture left hip. There is no evidence for soft tissue swelling. IMPRESSION: High probability of a subcapital fracture left hip The above report was generated using voice recognition software. It may contain grammatical, syntax or spelling errors. Electronically signed by: Nasir Solorzano M.D. 05/29/2017 10:59 PM Dictated Date/Time: 05/29/2017 10:57 PM
--- NOTE | 2017-05-29 23:01 | DIAGNOSTIC IMAGING REPORT ---
L FEMUR 2 VIEWS ROUTINE CLINICAL HISTORY: s/p fall, femoral neck fracture COMPARISON: None. DISCUSSION: The bones and joint spaces appear intact. There is no evidence of fracture, dislocation or bony disease. There is no evidence for soft tissue swelling. Subcapital fracture left hip is again noted IMPRESSION: Subcapital fracture left hip. The Remainder of the femur is negative. The above report was generated using voice recognition software. It may contain grammatical, syntax or spelling errors. Electronically signed by: Nasir Solorzano M.D. 05/29/2017 11:00 PM Dictated Date/Time: 05/29/2017 10:59 PM
[2017-05-29 23:15] VITALS: BP 145/84; PULSE 67; TEMP 36.8; O2SAT 92
[2017-05-30] VITALS (14 sets, daily range): BP systolic 77–170; BP diastolic 47–106; PULSE 70–77; TEMP 36.2–36.8; O2SAT 93–99
[2017-05-30 05:48] LABS: BASO % 0.6 %; BASO ABS # 0.02 K/uL (0-0.2); EOS % 6.5 %; EOS ABS # 0.22 K/uL (0-0.5); HEMATOCRIT 37.8 % (37-47); HEMOGLOBIN 12.7 g/dL (12.0-16.0); IG# 0.02 K/uL (0.00-0.02); LYMPH % 27.1 %; LYMPH ABS # 0.92 K/uL (1.2-3.4); MEAN CELL VOLUME 87.1 fL (80-100); MEAN CORPUSCULAR HEMOGLOBIN 29.3 pg (25-34); MEAN CORPUSCULAR HGB CONC 33.6 g/dl (32-36); MEAN PLATELET VOLUME 9.6 fL (7.4-10.4); MONO % 11.2 %; MONO ABS # 0.38 K/uL (0.11-0.59); NEUT ABS # 1.83 K/uL (1.4-6.5); PLATELET COUNT 144 K/uL (130-400); RED CELL DISTRIBUTION WIDTH CV 13.4 % (11.5-14.5); WHITE BLOOD COUNT 3.39 K/uL (4.8-10.8)
[2017-05-30] MEDS ORDERED: CEFAZOLIN 2000MG IV PUSH 15 ML IV SCH (06:00)
[2017-05-30] MEDS ORDERED: CEFAZOLIN IV 2,000 MG in DEXTROSE 5% 50ML 50 ML IV SCH (06:00)
[2017-05-30] MEDS: LEVOTHYROXINE 75 MCG TAB PO SCH (06:14)
[2017-05-30] MEDS: RYTARY PO SCH ×4 (06:15→19:36)
[2017-05-30 06:18] LABS: CALCIUM 8.5 mg/dl (8.5-10.1); CREATININE 0.8 mg/dl (0.60-1.20); POTASSIUM 3.3 mmol/L (3.5-5.1)
[2017-05-30] MEDS ORDERED: BUPIVACAINE 0.5 % 5 MG/1 ML PF 10ML VIAL ONE (07:27)
--- NOTE | 2017-05-30 07:55 | Orthopedic Progress Note ---
Orthopedic Progress Note Date of Service May 30, 2017. Subjective Reports: feeling well, Denies: chest pain, SOB, nausea / vomiting, light headedness, calf pain Additional Notes: PATIENT CURRENTLY COMFORTABLE AT REST. SHE HAS SOME PAIN WITH MOVEMENT AND REPOSITIONING. Objective calves soft nontender, N/V intact, capillary refill less than 2 sec., A&O x3, toes mobile LLE NVSI +EHL/FHL/TA/GS SILT grossly, +2 DP pulse, compartments soft NT, skin intact, +straight leg raise. Date Time Temp Pulse Resp B/P (MAP) Pulse Ox O2 Delivery O2 Flow Rate FiO2 05/30/17 07:40 36.6 72 15 170/100 (123) 93 Room Air 161/99 (119) 05/30/17 03:20 36.8 75 16 139/89 (106) 94 Room Air 05/29/17 23:15 36.8 67 16 145/84 (104) 92 Room Air 05/29/17 22:10 Room Air 05/29/17 22:00 Room Air 05/29/17 21:55 76 132/82 (99) 05/29/17 20:08 37.0 75 21 164/101 94 05/29/17 19:45 Room Air 05/29/17 19:40 36.5 66 18 165/93 (117) 95 Room Air 05/29/17 19:20 37.0 75 21 164/101 94 Room Air 05/29/17 18:31 71 162/92 93 Room Air 05/29/17 17:00 71 151/81 92 Room Air 05/29/17 16:00 79 18 176/98 95 Room Air 05/29/17 14:31 80 05/29/17 14:09 37.1 77 168/92 94 Room Air Laboratory Results 24 Hours: Test 05/29/17 14:33 05/30/17 05:22 White Blood Count 4.60 K/uL 3.39 K/uL Red Blood Count 4.50 M/uL 4.34 M/uL Hemoglobin 13.2 g/dL 12.7 g/dL Hematocrit 39.8 % 37.8 % Mean Corpuscular Volume 88.4 fL 87.1 fL Mean Corpuscular Hemoglobin 29.3 pg 29.3 pg Mean Corpuscular Hemoglobin Concent 33.2 g/dl 33.6 g/dl Platelet Count 177 K/uL 144 K/uL Mean Platelet Volume 10.7 fL 9.6 fL Neutrophils (%) (Auto) 67.7 % 54.0 % Lymphocytes (%) (Auto) 20.4 % 27.1 % Monocytes (%) (Auto) 9.8 % 11.2 % Eosinophils (%) (Auto) 1.7 % 6.5 % Basophils (%) (Auto) 0.2 % 0.6 % Neutrophils # (Auto) 3.11 K/uL 1.83 K/uL Lymphocytes # (Auto) 0.94 K/uL 0.92 K/uL Monocytes # (Auto) 0.45 K/uL 0.38 K/uL Eosinophils # (Auto) 0.08 K/uL 0.22 K/uL Basophils # (Auto) 0.01 K/uL 0.02 K/uL Assessment & Plan Assessment: LEFT HIP FRACTURE Plan: NPO FOR PERCUTANEOUS PINNING THIS AFTERNOON PREOP ANTIBIOTIC IS ORDERED MEDICAL MANAGEMENT- CLEARED PAIN MANAGEMENT- DILAUDID PRN CONSENT ON CHART, WILL NEED SIGNED BY . Attending addendum I personally saw and examined the patient and agree with assessment and plan above. X-rays AP and lateral of the left hip demonstrate a stable valgus impacted fracture pattern which is amenable to percutaneous hip pinning. 82year-old female with a valgus impacted subcapital femoral neck fracture sustained after a fall. The patient was medically stabilized on 05/30/2017. I indicated the patient for left hip percutaneous pinning. The patient was informed of the risks and benefits of surgery, which included but not limited to infection, bleeding, blood clots, damage to nerves, vessels, bone and soft tissue, dislocation, leg length discrepancy, , malunion, nonunion, need for additional surgery and . The patient chose to move forward with surgical intervention and informed consent was obtained. (1) Fracture of femoral neck, left
[2017-05-30] MEDS ORDERED: EpHEDrine SULFATE INJ 50 MG/ML AMP IV PRN (08:00)
[2017-05-30] MEDS ORDERED: ATROPINE SULFATE 0.1 MG/ML 5ML SYR IV PRN (08:00)
[2017-05-30] MEDS ORDERED: HYDROmorphone INJ 2 MG/ML SYR/VIAL IV PRN (08:00)
[2017-05-30] MEDS: MIDODRINE 2.5 MG TAB PO SCH ×3 (08:00→17:15)
[2017-05-30] MEDS ORDERED: PHENYLEPHRINE 100MCG/ML 5ML SYR IV PRN (08:00)
[2017-05-30] MEDS ORDERED: ONDANSETRON INJ 2 MG/ML 2 ML VIAL IV PRN ×2 (08:00→16:30)
[2017-05-30] MEDS: D5W AND 1/2NSS 1,000 ML IV SCH (08:57)
[2017-05-30] MEDS: ESCITALOPRAM OXALATE 10 MG TAB PO SCH (09:00)
[2017-05-30] MEDS: FLUDROCORTISONE ACETATE 0.1 MG TAB PO SCH (09:00)
[2017-05-30] MEDS: PANTOprazole SOD 40 MG TAB PO SCH (09:02)
[2017-05-30] MEDS ORDERED: LIDOCAINE HCL 2% 2 ML VIAL (20MG/ML) ONE (09:21)
[2017-05-30] MEDS ORDERED: EpHEDrine SULFATE 50MG/5ML SYR ONE (09:21)
[2017-05-30] MEDS ORDERED: PROPOFOL IV EMULSION 10 MG/ML 20 ML VIAL IV ONE (09:21)
[2017-05-30] MEDS ORDERED: MIDAZOLAM HCL 1 MG/ML 2ML VIAL ONE (09:22)
[2017-05-30] MEDS ORDERED: FENTANYL CITRATE INJ 50 MCG/1 ML 2 ML VIAL ONE ×2 (09:22→15:08)
[2017-05-30] MEDS ORDERED: ROCURONIUM BROMIDE 10 MG/ML 5 ML VIAL IV ONE (10:41)
[2017-05-30] MEDS ORDERED: ONDANSETRON INJ 2 MG/ML 2 ML VIAL ONE (10:41)
[2017-05-30] MEDS ORDERED: GLYCOPYRROLATE INJ 0.2 MG/ML VIAL ONE (10:41)
[2017-05-30] MEDS ORDERED: NEOSTIGMINE METHYLSULFATE 5 MG/5 ML SYR ONE (10:41)
[2017-05-30] MEDS ORDERED: LARYING-O-JET KIT (LTA) ONE (10:50)
--- NOTE | 2017-05-30 11:55 | Progress Note ---
Subjective Date of Service: May 30, 2017. Subjective 82 yo female who is awaiting surgery to repair her left hip. Currently complaining of moderate pain in her left hip. Patientdenies any chest pain, nausea, vomiting, SOB Problem List Medical Problems: (1) Cough Status: Acute (2) Subcapital fracture of left femur Status: Acute Review of Systems All Other Systems: Reviewed and Negative Medications Current Inpatient Medications Medications (Trade) Dose Ordered Sig/Pravin Route Start Time Stop Time Status Last Admin Dose Admin Ondansetron HCl (Zofran Inj) 4 mg Q6H PRN IV 05/29/17 18:00 06/28/17 17:59 Hydromorphone HCl (Dilaudid Inj) 0.25 mg Q20M PRN IV 05/29/17 18:00 06/12/17 17:59 05/29/17 22:18 0.25 MG Hydromorphone HCl (Dilaudid Inj) 0.5 mg Q20M PRN IV 05/29/17 18:00 06/12/17 17:59 Naloxone HCl (Narcan Inj) 0.1 mg PRN PRN IV 05/29/17 18:00 06/28/17 17:59 Senna/Docusate Sodium (Senokot S Tab) 2 tab HS PO 05/29/17 21:00 06/28/17 20:59 05/30/17 21:00 2 TAB Polyethylene (Miralax Powder Packet) 17 gm DAILY PRN PO 05/29/17 18:00 06/28/17 17:59 Magnesium Hydroxide (Milk Of Magnesia Susp) 30 ml DAILY PRN PO 05/29/17 18:00 06/28/17 17:59 Bisacodyl (Dulcolax Supp) 10 mg DAILY PRN [place] 05/29/17 18:00 06/28/17 17:59 Sodium Biphosphate/ Sodium Phosphate (Fleet Enema) 132 ml PRN PRN [place] 05/29/17 18:00 Escitalopram Oxalate (Lexapro Tab) 10 mg QAM PO 05/30/17 09:00 06/29/17 08:59 Fludrocortisone Acetate (Florinef Tab) 0.3 mg QAM PO 05/30/17 09:00 06/29/17 08:59 Levothyroxine Sodium (Synthroid Tab) 75 mcg DAILYBB PO 05/30/17 06:00 06/29/17 05:59 05/30/17 06:14 75 MCG Lorazepam (Ativan Tab) 0.5 mg HS PO 05/29/17 21:00 06/28/17 20:59 05/29/17 22:01 0.5 MG Pantoprazole Sodium (Protonix Tab) 40 mg QAM PO 05/30/17 09:00 06/29/17 08:59 05/30/17 09:02 40 MG Miscellaneous Information (Order Awaiting Action) 1 ea QS N/A 05/29/17 21:00 06/28/17 20:59 Miscellaneous Information (Order Awaiting Action) 1 ea QS N/A 05/30/17 00:00 06/29/17 00:00 Non-Formulary Medication (Non-Formulary Patient'S Own Med) 1 ea QID@0700,1100,1500,1900 PO 05/29/17 21:00 06/28/17 20:59 05/30/17 19:36 1 EA Midodrine (Proamatine Tab) 2.5 mg AC PO 05/30/17 08:00 06/29/17 07:59 Sodium Chloride 1,000 ml @ 100 mls/hr Q10H IV 05/30/17 17:30 06/29/17 17:29 05/30/17 21:01 100 MLS/HR Cefazolin Sodium 1000 mg/Syringe 7.5 ml @ 100 mls/hr Q8H IV 05/30/17 20:00 05/31/17 04:05 05/30/17 21:00 100 MLS/HR Aspirin/Aluminum/ Magnesium/Ca Carb (Ascriptin Tab) 325 mg BID PO 05/31/17 09:00 06/30/17 08:59 Morphine Sulfate (MoRPHine SULFATE INJ) 2 mg Q4 PRN IV 05/30/17 16:30 06/13/17 16:29 Tramadol HCl (Ultram Tab) 50 mg Q4H PRN PO 05/30/17 16:30 06/29/17 16:29 Objective Vital Signs Date Time Temp Pulse Resp B/P (MAP) Pulse Ox O2 Delivery O2 Flow Rate FiO2 05/30/17 08:03 93 Room Air 05/30/17 07:40 36.6 72 15 170/100 (123) 93 Room Air 161/99 (119) 05/30/17 07:10 Room Air 05/30/17 03:20 36.8 75 16 139/89 (106) 94 Room Air 05/29/17 23:15 36.8 67 16 145/84 (104) 92 Room Air 05/29/17 22:10 Room Air 05/29/17 22:00 Room Air 05/29/17 21:55 76 132/82 (99) 05/29/17 20:08 37.0 75 21 164/101 94 05/29/17 19:45 Room Air 05/29/17 19:40 36.5 66 18 165/93 (117) 95 Room Air 05/29/17 19:20 37.0 75 21 164/101 94 Room Air 05/29/17 18:31 71 162/92 93 Room Air 05/29/17 17:00 71 151/81 92 Room Air 05/29/17 16:00 79 18 176/98 95 Room Air 05/29/17 14:31 80 05/29/17 14:09 37.1 77 168/92 94 Room Air Physical Exam Comments: General Appearance: WD/WN, no apparent distress Eyes: normal inspection, PERRL, EOMI, sclerae normal ENT: hearing grossly normal Neck: supple, no adenopathy, thyroid normal, trachea midline Respiratory/Chest: lungs clear, normal breath sounds, no respiratory distress, no accessory muscle use, right anterior chest wall the subclavian space with palpable deep brain stimulator box in place Cardiovascular: regular rate, rhythm, no edema, no gallop, no JVD, no murmur Abdomen: normal bowel sounds, non tender, soft, no organomegaly, no pulsatile mass Extremities: no pedal edema (With good cap refill, sensation intact to light touch in the feet and toes bilaterally), + pertinent finding (Positive tenderness to palpation over the left proximal femur, no ecchymosis or edema) Neurologic/Psychiatric: alert, normal mood/affect, oriented x 3 Skin: normal color, warm/dry, no rash Lymphatic: no adenopathy Laboratory Results Last 24 Hours Test 05/29/17 14:33 05/29/17 14:46 05/29/17 15:49 05/29/17 16:02 White Blood Count 4.60 K/uL Red Blood Count 4.50 M/uL Hemoglobin 13.2 g/dL Hematocrit 39.8 % Mean Corpuscular Volume 88.4 fL Mean Corpuscular Hemoglobin 29.3 pg Mean Corpuscular Hemoglobin Concent 33.2 g/dl Platelet Count 177 K/uL Mean Platelet Volume 10.7 fL Neutrophils (%) (Auto) 67.7 % Lymphocytes (%) (Auto) 20.4 % Monocytes (%) (Auto) 9.8 % Eosinophils (%) (Auto) 1.7 % Basophils (%) (Auto) 0.2 % Neutrophils # (Auto) 3.11 K/uL Lymphocytes # (Auto) 0.94 K/uL Monocytes # (Auto) 0.45 K/uL Eosinophils # (Auto) 0.08 K/uL Basophils # (Auto) 0.01 K/uL RDW Standard Deviation 43.6 fL RDW Coefficient of Variation 13.4 % Immature Granulocyte % (Auto) 0.2 % Immature Granulocyte # (Auto) 0.01 K/uL Sodium Level 139 mmol/L Potassium Level mmol/L 3.3 mmol/L Chloride Level 103 mmol/L Carbon Dioxide Level 26 mmol/L Anion Gap 11.0 mmol/L Blood Urea Nitrogen 16 mg/dl Creatinine 0.93 mg/dl Est Creatinine Clear Calc Drug Dose 43.5 ml/min Estimated GFR () 66.8 Estimated GFR (Non- 57.6 BUN/Creatinine Ratio 17.3 Random Glucose 102 mg/dl Calcium Level 9.3 mg/dl Magnesium Level mg/dl 2.1 mg/dl Total Bilirubin 0.6 mg/dl Direct Bilirubin mg/dl 0.2 mg/dl Aspartate Amino Transf (AST/SGOT) U/L 21 U/L Alanine Aminotransferase (ALT/SGPT) 12 U/L Alkaline Phosphatase 78 U/L Total Protein 7.0 gm/dl Albumin 3.5 gm/dl Bedside Troponin I < 0.030 ng/ml Urine Color YELLOW Urine Appearance CLEAR Urine pH 7.5 Urine Specific Hayes 1.006 Urine Protein NEG Urine Glucose (UA) NEG Urine Ketones NEG Urine Occult Blood NEG Urine Nitrite NEG Urine Bilirubin NEG Urine Urobilinogen NEG Urine Leukocyte Esterase NEG Test 05/30/17 05:22 White Blood Count 3.39 K/uL Red Blood Count 4.34 M/uL Hemoglobin 12.7 g/dL Hematocrit 37.8 % Mean Corpuscular Volume 87.1 fL Mean Corpuscular Hemoglobin 29.3 pg Mean Corpuscular Hemoglobin Concent 33.6 g/dl Platelet Count 144 K/uL Mean Platelet Volume 9.6 fL Neutrophils (%) (Auto) 54.0 % Lymphocytes (%) (Auto) 27.1 % Monocytes (%) (Auto) 11.2 % Eosinophils (%) (Auto) 6.5 % Basophils (%) (Auto) 0.6 % Neutrophils # (Auto) 1.83 K/uL Lymphocytes # (Auto) 0.92 K/uL Monocytes # (Auto) 0.38 K/uL Eosinophils # (Auto) 0.22 K/uL Basophils # (Auto) 0.02 K/uL RDW Standard Deviation 43.0 fL RDW Coefficient of Variation 13.4 % Immature Granulocyte % (Auto) 0.6 % Immature Granulocyte # (Auto) 0.02 K/uL Sodium Level 139 mmol/L Potassium Level 3.3 mmol/L Chloride Level 106 mmol/L Carbon Dioxide Level 27 mmol/L Anion Gap 6.0 mmol/L Blood Urea Nitrogen 11 mg/dl Creatinine 0.80 mg/dl Est Creatinine Clear Calc Drug Dose 50.6 ml/min Estimated GFR () 80.1 Estimated GFR (Non- 69.1 BUN/Creatinine Ratio 14.4 Random Glucose 97 mg/dl Calcium Level 8.5 mg/dl Magnesium Level 2.0 mg/dl 25-Hydroxy Vitamin D Total 34.0 ng/ml Thyroid Stimulating Hormone (TSH) 0.863 uIu/ml Assessment and Plan This patient is an 82-year-old female with history of Parkinson's disease with deep brain stimulator in place, chronic diastolic CHF, hypothyroidism, orthostatic hypotension with syncope, osteopenia, GERD, anxiety disorder, and hepatic cysts, who presents to the ER after sustaining a mechanical fall resulting in a left hip valgus impacted femoral neck fracture. She reports she accidentally tripped on her 's wheelchair and sustained a fall. She did have a little bit of pain in the right elbow but that has since gone away. She has no other injuries. Did not lose consciousness or hit her head. She denies any cardiac issues. She reports she can easily go up and down a flight of stairs without chest pain or shortness of breath. Review of the records shows she had a cardiac catheterization in November 2012 for dyspnea of unknown etiology. Her left heart cath revealed clean coronary arteries, her right heart cath was also normal. Her ECG here shows LVH, but is otherwise normal. Left hip fracture-after mechanical fall, likely an osteoporotic fracture with fall from standing height. [place] for surgery later today. Intermediate cardiac risk for an intermediate risk procedure due to the following: She had a normal cardiac catheterization 4 years ago that was completely normal. She has no cardiopulmonary symptoms and can easily achieve 4 METS. She does carry a diagnosis of chronic diastolic CHF and her fluid status and renal function should be monitored closely in the perioperative period. -Orthopedic surgery consultation appreciated -Ancef prior to surgery -Patient is currently N.p.o. except for meds-would recommend she take her Florinef and midodrine in the morning to prevent hypotension -Consult anesthesia-she may need to have her DBS turned off-I asked her daughter to bring in the device from home with which to do this -Pain control with hydromorphone -DVT prophylaxis as per orthopedics -Follow CBC postop -Check vitamin D in the morning -Restart home p.o. vitamin D after surgery, consider Forteo or Fosamax or Prolia , will need DEXA scan within 6 months -Will need PT/OT consultations postoperatively Parkinson's disease-stable with DBS in place -Anesthesia to evaluate to see if DBS needs to be turned off -Continue Azilect and Rytary-her daughter will bring in medications from home as these are not available here Orthostatic hypotension with history of syncope-stable -Continue Florinef and midodrine -Consider stress dose steroids has hypotension postoperatively Chronic diastolic CHF-no evidence of volume overload, is not on diuretics at home -Observe for changes in fluid status postoperatively Hypothyroidism-last TSH checked 1 year ago -Check TSH in the morning -Continue home dose of levothyroxine for now GERD with history of Schatzki's ring being dilated 2017-stable -Continue Protonix Anxiety disorder-stable -Continue Lorazepam as needed and Lexapro Prophylaxis-SCDs for now Disposition admitted to medical/surgical floor-will need PT/OT evaluations and possible rehab placement Full code UPDATE 18:40 Patient was hypotensive after surgery. She did have labile BP as it was elevated and then hypotensive. At 18:40, SYSTOLIC WAS IN THE 90s. Plan is to monitor BP over night, if it becomes lower than 90, may consider a 500 ml bolus.
[2017-05-30] MEDS ORDERED: BACITRACIN 50000 UNIT VIAL ONE (14:48)
[2017-05-30] MEDS ORDERED: BUPIVACAINE 0.5 % 5 MG/1 ML MPF 30ML VIAL ONE (14:48)
[2017-05-30] MEDS ORDERED: LABETALOL HCL IV 5 MG/ML 20ML IV ONE (15:22)
--- NOTE | 2017-05-30 15:57 | DIAGNOSTIC IMAGING REPORT ---
L HIP OR FILMS HISTORY: 82 years-old Female LT HIP ORIF status post placement of cannulated screws within the left hip COMPARISON: Left femur radiographs 05/29/2017 TECHNIQUE: 2 spot fluoroscopic images of the left hip were obtained utilizing 119.8 seconds of fluoroscopy time FINDINGS: There has been interval placement of three cannulated screws within the left femoral neck from a lateral approach fixating the previously described nondisplaced femoral neck fracture. Alignment is satisfactory and the screws appear to be intact. Moderate degenerative changes of the left femoral acetabular joint. IMPRESSION: Fixated femoral neck fracture with satisfactory alignment. The above report was generated using voice recognition software. It may contain grammatical, syntax or spelling errors. Electronically signed by: Robert Hunter M.D. 05/30/2017 3:56 PM Dictated Date/Time: 05/30/2017 3:54 PM
--- NOTE | 2017-05-30 16:10 | [facility] Post Operative Brief Note ---
Immediate Operative Summary Operative Date May 30, 2017. Pre-Operative Diagnosis Left hip femoral neck fracture Post-Operative Diagnosis same as preop Procedure(s) Performed Left hip percutaneous pinning Surgeon Dr. Zimmerman Harness Cutter Surgeon(s) None Estimated Blood Loss 50 ml Findings Consistent with Post-Op Diagnosis Fluids (cc crystalloids) 600 Specimens none Drains None Anesthesia Type General Complication(s) none Disposition Disposition: Recovery Room / PACU
[2017-05-30] MEDS ORDERED: OXYCODONE HCL IR 5 MG TAB (IMMEDIATE RELEASE) PO PRN (16:30)
[2017-05-30] MEDS ORDERED: NALOXONE HCL 0.4 MG/1 ML VIAL/CARP IV PRN (16:30)
[2017-05-30] MEDS ORDERED: MoRPHine SULFATE 2 MG/ML CARP IV PRN (16:30)
--- NOTE | 2017-05-30 16:48 | DIAGNOSTIC IMAGING REPORT ---
L HIP UNILATERAL 2 VIEWS CLINICAL HISTORY: s/p left hip precutaneous pinning postoperative evaluation COMPARISON: 05/29/2017 DISCUSSION: Interval placement of 3 no pannus traversing the subcapital fracture of the hip. Lyme is generally anatomic. IMPRESSION: Anatomic alignment status post left hip pinning The above report was generated using voice recognition software. It may contain grammatical, syntax or spelling errors. Electronically signed by: Nasir Solorzano M.D. 05/30/2017 4:46 PM Dictated Date/Time: 05/30/2017 4:45 PM
[2017-05-30] MEDS ORDERED: HYDROmorphone INJ 1 MG/ML SYR ONE (16:52)
--- NOTE | 2017-05-30 17:54 | Anesthesiology Progress Note ---
Anesthesia Post Op Note Date & Time May 30, 2017 at 17:50 Vital Signs Pain Intensity: 2 Vital Signs Past 12 Hours Date Time Temp Pulse Resp B/P (MAP) Pulse Ox O2 Delivery O2 Flow Rate FiO2 05/30/17 17:35 77 12 82/45 96 Nasal Cannula 2 Oxymask 05/30/17 17:25 76 14 85/54 96 Nasal Cannula 2 Oxymask 05/30/17 17:15 76 15 89/48 98 Nasal Cannula 2 Oxymask 05/30/17 17:05 76 12 77/42 96 Nasal Cannula 2 Oxymask 05/30/17 16:55 81 18 97/47 96 Nasal Cannula 2 Oxymask 05/30/17 16:45 76 20 96/60 98 Oxymask 10 05/30/17 16:35 80 15 73/53 99 Oxymask 10 05/30/17 16:25 82 14 103/61 96 Oxymask 10 05/30/17 16:15 36.2 81 19 110/60 96 Oxymask 10 05/30/17 12:02 36.8 77 22 170/100 (123) 93 Room Air 163/106 (125) 05/30/17 08:03 93 Room Air 05/30/17 07:40 36.6 72 15 170/100 (123) 93 Room Air 161/99 (119) 05/30/17 07:10 Room Air Notes Mental Status: alert / awake / arousable, participated in evaluation Pt Amnestic to Procedure: Yes Nausea / Vomiting: adequately controlled Pain: adequately controlled Airway Patency, RR, SpO2: stable & adequate BP & HR: stable & adequate, see Notes Hydration State: stable & adequate Anesthetic Complications: no major complications apparent The patient is doing well. She had her deep brain stimulator turned back on in the PACU. Her blood pressure was labile in the OR and she was given phenylephrine and labetalol. She was hypotensive in the PACU with SBP in the 70s and 80s so she was given 500 ml bolus of crystalloid. Her SBP is now in the 100s. Her other vital signs have been stable and she is awake and comfortable.
--- NOTE | 2017-05-30 18:21 | Orthopedic Progress Note ---
Orthopedic Progress Note Date of Service May 30, 2017. Subjective Additional Notes: Postoperative progress note Patient seen in PACU, comfortable, denies pain, no acute issues. Objective LLE: NVSI +EHL/FHL/TA/GS SILT grossly, +2 DP pulse, CR< 2 seconds, compartments soft NT, dressing cdi Date Time Temp Pulse Resp B/P (MAP) Pulse Ox O2 Delivery O2 Flow Rate FiO2 05/30/17 17:55 36.0 77 17 101/50 99 Nasal Cannula 2 Oxymask 05/30/17 17:45 78 17 105/63 94 Nasal Cannula 2 Oxymask 05/30/17 17:35 77 12 82/45 96 Nasal Cannula 2 Oxymask 05/30/17 17:25 76 14 85/54 96 Nasal Cannula 2 Oxymask 05/30/17 17:15 76 15 89/48 98 Nasal Cannula 2 Oxymask 05/30/17 17:05 76 12 77/42 96 Nasal Cannula 2 Oxymask 05/30/17 16:55 81 18 97/47 96 Nasal Cannula 2 Oxymask 05/30/17 16:45 76 20 96/60 98 Oxymask 10 05/30/17 16:35 80 15 73/53 99 Oxymask 10 05/30/17 16:25 82 14 103/61 96 Oxymask 10 05/30/17 16:15 36.2 81 19 110/60 96 Oxymask 10 05/30/17 12:02 36.8 77 22 170/100 (123) 93 Room Air 163/106 (125) 05/30/17 08:03 93 Room Air 05/30/17 07:40 36.6 72 15 170/100 (123) 93 Room Air 161/99 (119) 05/30/17 07:10 Room Air 05/30/17 03:20 36.8 75 16 139/89 (106) 94 Room Air 05/29/17 23:15 36.8 67 16 145/84 (104) 92 Room Air 05/29/17 22:10 Room Air 05/29/17 22:00 Room Air 05/29/17 21:55 76 132/82 (99) 05/29/17 20:08 37.0 75 21 164/101 94 05/29/17 19:45 Room Air 05/29/17 19:40 36.5 66 18 165/93 (117) 95 Room Air 05/29/17 19:20 37.0 75 21 164/101 94 Room Air 05/29/17 18:31 71 162/92 93 Room Air Laboratory Results 24 Hours: Test 05/30/17 05:22 White Blood Count 3.39 K/uL Red Blood Count 4.34 M/uL Hemoglobin 12.7 g/dL Hematocrit 37.8 % Mean Corpuscular Volume 87.1 fL Mean Corpuscular Hemoglobin 29.3 pg Mean Corpuscular Hemoglobin Concent 33.6 g/dl Platelet Count 144 K/uL Mean Platelet Volume 9.6 fL Neutrophils (%) (Auto) 54.0 % Lymphocytes (%) (Auto) 27.1 % Monocytes (%) (Auto) 11.2 % Eosinophils (%) (Auto) 6.5 % Basophils (%) (Auto) 0.6 % Neutrophils # (Auto) 1.83 K/uL Lymphocytes # (Auto) 0.92 K/uL Monocytes # (Auto) 0.38 K/uL Eosinophils # (Auto) 0.22 K/uL Basophils # (Auto) 0.02 K/uL Assessment & Plan Assessment: s/p left hip percutaneous pinning for valgus impacted femoral neck fracture Plan: -Ancef x 24 -DVT PPX - ASA BID -Partial WB LLE -PT/OT -PO XR - let hip femoral neck fracture, valgus impacted with proper positioning of orthopedic implants without new fracture or dislocation. -AM labs (1) Fracture of femoral neck, left
[2017-05-30] MEDS: POTASSIUM CHLR 10 MEQ / WTR 10 MEQ in PREMIXED WATER 100 ML IV SCH ×2 (20:11→20:12)
[2017-05-30] MEDS: LORAZEPAM 0.5 MG TAB PO SCH (21:00)
[2017-05-30] MEDS: DOCUSATE SODIUM/SENNA 50/8.6MG TAB PO SCH (21:00)
[2017-05-30] MEDS: CEFAZOLIN IV 1,000 MG in SYRINGE 0 ML IV SCH (21:00)
[2017-05-30] MEDS ORDERED: DOCUSATE SODIUM/SENNA 50/8.6MG TAB PO SCH (21:00)
[2017-05-30] MEDS: SODIUM CHLORIDE 0.9% 1000ML 1,000 ML IV SCH (21:01)
[2017-05-31] VITALS (7 sets, daily range): BP systolic 115–150; BP diastolic 73–82; PULSE 79–87; TEMP 36.7–37.2; O2SAT 90–93; Ht 157.5 cm; Wt 70.0 kg
[2017-05-31] MEDS ORDERED: NURSING DECISION MEDICATION ORDER SCH (04:00)
[2017-05-31 04:29] LABS: HEMATOCRIT 33.1 % (37-47); HEMOGLOBIN 10.8 g/dL (12.0-16.0); MEAN CELL VOLUME 89.2 fL (80-100); MEAN CORPUSCULAR HEMOGLOBIN 29.1 pg (25-34); MEAN CORPUSCULAR HGB CONC 32.6 g/dl (32-36); MEAN PLATELET VOLUME 9.6 fL (7.4-10.4); PLATELET COUNT 130 K/uL (130-400); RED CELL DISTRIBUTION WIDTH CV 13.6 % (11.5-14.5); RED CELL DISTRIBUTION WIDTH SD 44.7 fL (36.4-46.3); WHITE BLOOD COUNT 5.02 K/uL (4.8-10.8)
[2017-05-31] MEDS: CEFAZOLIN IV 1,000 MG in SYRINGE 0 ML IV SCH (04:29)
[2017-05-31 04:51] LABS: CALCIUM 8.3 mg/dl (8.5-10.1); CREATININE 0.9 mg/dl (0.60-1.20)
[2017-05-31] MEDS: LEVOTHYROXINE 75 MCG TAB PO SCH (05:34)
[2017-05-31] MEDS: RYTARY PO SCH ×4 (07:15→19:18)
--- NOTE | 2017-05-31 08:31 | Anesthesiology Progress Note ---
Anesthesia Post Op Note Date & Time May 31, 2017 at 08:30 Vital Signs Pain Intensity: 1 Vital Signs Past 12 Hours Date Time Temp Pulse Resp B/P (MAP) Pulse Ox O2 Delivery O2 Flow Rate FiO2 05/31/17 07:26 36.9 80 16 131/79 (96) 92 Room Air 05/31/17 03:00 36.9 79 16 121/75 (90) 92 Room Air 05/30/17 23:56 96 Room Air 05/30/17 23:40 Room Air 05/30/17 23:14 36.4 75 17 123/75 (91) 99 Nasal Cannula 2.0 05/30/17 21:07 36.4 75 16 113/76 (88) 98 Nasal Cannula 2.0 Notes Mental Status: alert / awake / arousable Pt Amnestic to Procedure: Yes Nausea / Vomiting: adequately controlled Pain: adequately controlled Airway Patency, RR, SpO2: stable & adequate BP & HR: stable & adequate Hydration State: stable & adequate Anesthetic Complications: pt c/o multiple attempts at a line. otherwise no complaints
[2017-05-31] MEDS: FLUDROCORTISONE ACETATE 0.1 MG TAB PO SCH ×2 (09:00→09:44)
[2017-05-31] MEDS: ESCITALOPRAM OXALATE 10 MG TAB PO SCH ×2 (09:43→10:18)
[2017-05-31] MEDS: MIDODRINE 2.5 MG TAB PO SCH ×4 (09:43→18:09)
[2017-05-31] MEDS: ASPIRIN/ALUM/MAGNES/CAL CARB 325 MG TAB PO SCH ×2 (09:44→20:48)
[2017-05-31] MEDS: PANTOprazole SOD 40 MG TAB PO SCH (09:44)
[2017-05-31] MEDS: TRAMADOL HCL 50 MG TAB PO PRN ×2 (09:50)
--- NOTE | 2017-05-31 10:11 | Orthopedic Progress Note ---
Orthopedic Progress Note Date of Service May 31, 2017. Subjective Post OP Day: 1 Additional Notes: Patient seen laying in bed, comfortable, pain well controlled, no acute issues overnight. Objective LLE: NVSI +EHL/FHL/TA/GS SILT grossly, CR< 2 seconds, compartments soft, NT, dressing CDI. Date Time Temp Pulse Resp B/P (MAP) Pulse Ox O2 Delivery O2 Flow Rate FiO2 05/31/17 07:45 37.2 05/31/17 07:45 Room Air 05/31/17 07:26 36.9 80 16 131/79 (96) 92 Room Air 05/31/17 03:00 36.9 79 16 121/75 (90) 92 Room Air 05/30/17 23:56 96 Room Air 05/30/17 23:40 Room Air 05/30/17 23:14 36.4 75 17 123/75 (91) 99 Nasal Cannula 2.0 05/30/17 21:07 36.4 75 16 113/76 (88) 98 Nasal Cannula 2.0 05/30/17 20:10 36.2 70 16 95/62 (73) 98 Nasal Cannula 2.0 05/30/17 19:10 36.3 70 14 105/65 (78) 99 Nasal Cannula 05/30/17 18:40 36.3 72 18 93/56 (68) 99 Nasal Cannula 2.0 05/30/17 18:35 88/56 (67) 05/30/17 18:25 80/48 (59) 05/30/17 18:20 Nasal Cannula 05/30/17 18:20 Nasal Cannula 2.0 05/30/17 18:15 77/47 (57) 05/30/17 18:10 36.5 77 18 98 Nasal Cannula 2.0 05/30/17 17:55 36.0 77 17 101/50 99 Nasal Cannula 2 Oxymask 05/30/17 17:45 78 17 105/63 94 Nasal Cannula 2 Oxymask 05/30/17 17:35 77 12 82/45 96 Nasal Cannula 2 Oxymask 05/30/17 17:25 76 14 85/54 96 Nasal Cannula 2 Oxymask 05/30/17 17:15 76 15 89/48 98 Nasal Cannula 2 Oxymask 05/30/17 17:05 76 12 77/42 96 Nasal Cannula 2 Oxymask 05/30/17 16:55 81 18 97/47 96 Nasal Cannula 2 Oxymask 05/30/17 16:45 76 20 96/60 98 Oxymask 10 05/30/17 16:35 80 15 73/53 99 Oxymask 10 05/30/17 16:25 82 14 103/61 96 Oxymask 10 05/30/17 16:15 36.2 81 19 110/60 96 Oxymask 10 05/30/17 12:02 36.8 77 22 170/100 (123) 93 Room Air 163/106 (125) Laboratory Results 24 Hours: Test 05/31/17 04:17 Hematocrit 33.1 % Hemoglobin 10.8 g/dL Assessment & Plan Assessment: s/p left hip percutaneous pinning for valgus impacted femoral neck fracture POD#1 Plan: -Ancef x 24 -DVT PPX - ASA BID -Partial WB LLE -PT/OT -PO XR - let hip femoral neck fracture, valgus impacted with proper positioning of orthopedic implants without new fracture or dislocation. -AM labs - Hgb 10.8 (1) Fracture of femoral neck, left
[2017-05-31] MEDS: SODIUM CHLORIDE 0.9% 1000ML 1,000 ML IV SCH (20:43)
[2017-05-31] MEDS: LORAZEPAM 0.5 MG TAB PO SCH (20:43)
[2017-05-31] MEDS: BOOST BREEZE NUTRITION DRINK 1 BOX PO SCH (20:46)
[2017-05-31] MEDS: DOCUSATE SODIUM/SENNA 50/8.6MG TAB PO SCH (20:49)
[2017-06-01] MEDS ORDERED: NURSING VERBAL MED ORDER ONE (01:45)
[2017-06-01] MEDS: LEVOTHYROXINE 75 MCG TAB PO SCH (06:02)
[2017-06-01] MEDS: RYTARY PO SCH ×3 (06:03→14:36)
[2017-06-01] MEDS: SODIUM CHLORIDE 0.9% 1000ML 1,000 ML IV SCH (06:06)
--- NOTE | 2017-06-01 07:50 | Orthopedic Progress Note ---
Orthopedic Progress Note Date of Service Jun 01, 2017. Subjective Post OP Day: 2 Reports: feeling well, Denies: chest pain, SOB, nausea / vomiting, light headedness, calf pain Objective calves soft nontender, N/V intact, hip located, capillary refill less than 2 sec., incision C/D/I, A&O x3, toes mobile Date Time Temp Pulse Resp B/P (MAP) Pulse Ox O2 Delivery O2 Flow Rate FiO2 06/01/17 00:30 Room Air 05/31/17 23:08 37.0 87 17 150/82 (104) 90 Room Air 05/31/17 15:35 36.8 84 16 134/78 (96) 93 Room Air 05/31/17 15:30 Room Air 05/31/17 11:47 36.7 05/31/17 07:45 37.2 05/31/17 07:45 Room Air Assessment & Plan Assessment: s/p left hip percutaneous pinning for valgus impacted femoral neck fracture POD#2 Plan: -Ancef x 24 -DVT PPX - ASA BID -Partial WB LLE -PT/OT -PO XR - let hip femoral neck fracture, valgus impacted with proper positioning of orthopedic implants without new fracture or dislocation. -AM labs - Hgb 10.8 NPO for EGD today for dysphagia. Known to Dr. Clemente CURRAN planning- [facility] when medically stable. Urine output improved today, hopefully MAGDY spann after EGD. (1) Fracture of femoral neck, left
[2017-06-01 07:56] VITALS: BP 160/83; PULSE 80; TEMP 36.7; O2SAT 90
[2017-06-01] MEDS: MIDODRINE 2.5 MG TAB PO SCH ×2 (08:00→11:52)
[2017-06-01 08:29] VITALS: O2SAT 90
[2017-06-01] MEDS: BOOST BREEZE NUTRITION DRINK 1 BOX PO SCH (08:29)
[2017-06-01] MEDS: ASPIRIN/ALUM/MAGNES/CAL CARB 325 MG TAB PO SCH (08:29)
[2017-06-01] MEDS: FLUDROCORTISONE ACETATE 0.1 MG TAB PO SCH (08:30)
[2017-06-01] MEDS: ESCITALOPRAM OXALATE 10 MG TAB PO SCH (08:30)
[2017-06-01] MEDS: PANTOprazole SOD 40 MG TAB PO SCH (08:30)
--- NOTE | 2017-06-01 08:41 | Progress Note ---
Subjective Date of Service: May 31, 2017. Subjective Patient reports feeling well. Her only complaint is dysphagia which she has had today. She reports having history of Schatzki ring requiring dilatation. Patient is requesting to see her GI specialist. Problem List Medical Problems: (1) Cough Status: Acute (2) Subcapital fracture of left femur Status: Acute Review of Systems Constitutional: No fever, No chills Eyes: No worsening of vision ENT: No hearing loss Respiratory: No cough Cardiac: No chest pain Abdomen: No pain Skin: No rash All Other Systems: Reviewed and Negative Medications Current Inpatient Medications Medications (Trade) Dose Ordered Sig/Pravin Route Start Time Stop Time Status Last Admin Dose Admin Ondansetron HCl (Zofran Inj) 4 mg Q6H PRN IV 05/29/17 18:00 06/28/17 17:59 Hydromorphone HCl (Dilaudid Inj) 0.25 mg Q20M PRN IV 05/29/17 18:00 06/12/17 17:59 05/29/17 22:18 0.25 MG Hydromorphone HCl (Dilaudid Inj) 0.5 mg Q20M PRN IV 05/29/17 18:00 06/12/17 17:59 Naloxone HCl (Narcan Inj) 0.1 mg PRN PRN IV 05/29/17 18:00 06/28/17 17:59 Senna/Docusate Sodium (Senokot S Tab) 2 tab HS PO 05/29/17 21:00 06/28/17 20:59 05/31/17 20:49 2 TAB Polyethylene (Miralax Powder Packet) 17 gm DAILY PRN PO 05/29/17 18:00 06/28/17 17:59 Magnesium Hydroxide (Milk Of Magnesia Susp) 30 ml DAILY PRN PO 05/29/17 18:00 06/28/17 17:59 Bisacodyl (Dulcolax Supp) 10 mg DAILY PRN ME 05/29/17 18:00 06/28/17 17:59 Sodium Biphosphate/ Sodium Phosphate (Fleet Enema) 132 ml PRN PRN ME 05/29/17 18:00 Escitalopram Oxalate (Lexapro Tab) 10 mg QAM PO 05/30/17 09:00 06/29/17 08:59 Fludrocortisone Acetate (Florinef Tab) 0.3 mg QAM PO 05/30/17 09:00 06/29/17 08:59 Levothyroxine Sodium (Synthroid Tab) 75 mcg DAILYBB PO 05/30/17 06:00 06/29/17 05:59 06/01/17 06:02 75 MCG Lorazepam (Ativan Tab) 0.5 mg HS PO 05/29/17 21:00 06/28/17 20:59 05/31/17 20:43 0.5 MG Pantoprazole Sodium (Protonix Tab) 40 mg QAM PO 05/30/17 09:00 06/29/17 08:59 05/31/17 09:44 40 MG Miscellaneous Information (Order Awaiting Action) 1 ea QS N/A 05/29/17 21:00 06/28/17 20:59 Miscellaneous Information (Order Awaiting Action) 1 ea QS N/A 05/30/17 00:00 06/29/17 00:00 Non-Formulary Medication (Non-Formulary Patient'S Own Med) 1 ea QID@0700,1100,1500,1900 PO 05/29/17 21:00 06/28/17 20:59 06/01/17 06:03 1 EA Midodrine (Proamatine Tab) 2.5 mg AC PO 05/30/17 08:00 06/29/17 07:59 05/31/17 18:09 2.5 MG Sodium Chloride 1,000 ml @ 100 mls/hr Q10H IV 05/30/17 17:30 06/29/17 17:29 Future hold 06/01/17 06:06 100 MLS/HR Aspirin/Aluminum/ Magnesium/Ca Carb (Ascriptin Tab) 325 mg BID PO 05/31/17 09:00 06/30/17 08:59 05/31/17 20:48 325 MG Morphine Sulfate (MoRPHine SULFATE INJ) 2 mg Q4 PRN IV 05/30/17 16:30 06/13/17 16:29 Tramadol HCl (Ultram Tab) 50 mg Q4H PRN PO 05/30/17 16:30 06/29/17 16:29 05/31/17 09:50 50 MG Enteral Nutritional Formula (Boost Breeze Nutritional Drink) 1 box BID PO 05/31/17 21:00 06/30/17 20:59 05/31/17 20:46 1 BOX Objective Vital Signs Date Time Temp Pulse Resp B/P (MAP) Pulse Ox O2 Delivery O2 Flow Rate FiO2 06/01/17 08:29 90 Room Air 06/01/17 07:56 36.7 80 22 160/83 (108) 90 Room Air 06/01/17 00:30 Room Air 05/31/17 23:08 37.0 87 17 150/82 (104) 90 Room Air 05/31/17 15:35 36.8 84 16 134/78 (96) 93 Room Air 05/31/17 15:30 Room Air 05/31/17 11:47 36.7 Physical Exam Comments: General Appearance: WD/WN, no apparent distress Eyes: normal inspection, PERRL, EOMI, sclerae normal ENT: hearing grossly normal Neck: supple, no adenopathy, thyroid normal, trachea midline Respiratory/Chest: lungs clear, normal breath sounds, no respiratory distress, no accessory muscle use, right anterior chest wall the subclavian space with palpable deep brain stimulator box in place Cardiovascular: regular rate, rhythm, no edema, no gallop, no JVD, no murmur Abdomen: normal bowel sounds, non tender, soft, no organomegaly, no pulsatile mass Extremities: no pedal edema (With good cap refill, sensation intact to light touch in the feet and toes bilaterally), Neurologic/Psychiatric: alert, normal mood/affect, oriented x 3 Skin: normal color, warm/dry, no rash Lymphatic: no adenopathy Assessment and Plan This patient is an 82-year-old female with history of Parkinson's disease with deep brain stimulator in place, chronic diastolic CHF, hypothyroidism, orthostatic hypotension with syncope, osteopenia, GERD, anxiety disorder, and hepatic cysts, who presents to the ER after sustaining a mechanical fall resulting in a left hip valgus impacted femoral neck fracture. She reports she accidentally tripped on her 's wheelchair and sustained a fall. She did have a little bit of pain in the right elbow but that has since gone away. She has no other injuries. Did not lose consciousness or hit her head. She denies any cardiac issues. She reports she can easily go up and down a flight of stairs without chest pain or shortness of breath. Review of the records shows she had a cardiac catheterization in November 2012 for dyspnea of unknown etiology. Her left heart cath revealed clean coronary arteries, her right heart cath was also normal. Her ECG here shows LVH, but is otherwise normal. Left hip fracture-after mechanical fall, likely an osteoporotic fracture with fall from standing height. Had surgery today. No complications -Pain control with hydromorphone -DVT prophylaxis as per orthopedics Will need DEXA scan within 6 months -Will need PT/OT consultations postoperatively Parkinson's disease-stable with DBS in place -Anesthesia to evaluate to see if DBS needs to be turned off -Continue Azilect and Rytary Orthostatic hypotension with history of syncope-stable -Continue Florinef and midodrine -Consider stress dose steroids has hypotension postoperatively Chronic diastolic CHF-no evidence of volume overload, is not on diuretics at home -Observe for changes in fluid status postoperatively Hypothyroidism-last TSH checked 1 year ago -Check TSH in the morning -Continue home dose of levothyroxine for now GERD with history of Schatzki's ring being dilated 2016-stable -Continue Protonix -CONSULTED GI DUE TO DYSPHAGIA -Gee likely need dilatation -Dysphagia will have EGD tomorrow. Anxiety disorder-stable -Continue Lorazepam as needed and Lexapro Prophylaxis-SCDs for now Disposition admitted to medical/surgical floor-will need PT/OT evaluations and possible rehab placement Full code
--- NOTE | 2017-06-01 09:48 | Gastrointestinal Consultation ---
Gastrointestinal Consultation Date of Consultation: Jun 01, 2017 Attending Physician: Dr. Patel Consulting Physician: Dr. Cornejo/ANN Bishop Reason for Consultation: Dysphagia History of Present Illness Patient is a 82 year old female with a history of dysphagia and esophageal stenosis requiring prior endoscopic dilation admitted after sustaining a fall with associated left hip fracture. She is status post right hip nailing. Postoperatively, the patient did demonstrate significant dysphagia and she reports belief that the dysphagia was related to medication side effects stating "I was really high after surgery". She states that evening she tolerated her meal well and was not having any sensation of food becoming stuck or choking with swallows. She denies any odynophagia or hematemesis. Patient states she is not having any hip pain at present and is avoiding opioid analgesics. In regard to her GI symptoms, she states she would like to temporarily defer a therapeutic dilation. States she did have blood pressure issues with anesthesia for her hip repair and she has concerns about receiving anesthesia again this soon. She requests to delay EGD until she is an outpatient and has recovered from her surgery. Past Medical/Surgical History Medical Problems: (1) Cough Status: Acute (2) Subcapital fracture of left femur Status: Acute Past Medical History: 1. CHF 2. Hypothyroidism 3. Orthostatic hypotension with syncope 4. Osteopenia 5. GERD 6. Esophageal stricture 7. Hepatic cysts 8. Garcia's esophagus 9. Squamous cell carcinoma 10. Basal cell carcinoma 11. Hiatus hernia Past Surgical History: 1. EGD with dilation 2. Breast biopsy 3. Cataract surgery 4. Cholecystectomy 5. Excision of facial lesion 6. Arthroplasty of hammertoe 7. Knee replacement 8. Rotator cuff repair 9. Left hip nailing 10. Sinus surgery 11. Tubal ligation Family History Gallbladder disease Negative for GI malignancy or IBD Social History Smoking Status: Never Smoker Alcohol Use: none Drug Use: none Marital Status: Housing Status: assisted living Occupation Status: retired Allergies Coded Allergies: Grass (Verified Allergy, Unknown, SNEEZING, RUNNY EYES, 05/29/17) Codeine (Verified Adverse Reaction, Intermediate, NAUSEA, PASSED OUT, 05/29) Current Medications Home Meds and Scripts Medications Dose Route/Sig Max Daily Dose Days Date Category Dose Instructions Micro-K Ext Rel (Potassium Chloride) 10 Meq Capcr 10 Meq PO DAILY 05/29/17 Reported Midodrine HCl (Midodrine) 2.5 Mg Tab 2.5 Mg PO TID 05/29/17 Reported Metrocream (Metronidazole (Topical)) 0.75 % Cre 1 Appln TOP BID 05/29/17 Reported Mobic (Meloxicam) 15 Mg Tab 15 Mg PO DAILY 05/29/17 Reported Synthroid (Levothyroxine Sodium) 75 Mcg Tab 75 Mcg PO DAILY 05/29/17 Reported Rasagiline Mesylate 0.5 Mg Tab 0.5 Mg PO QAM 05/29/17 Reported Vitamin B-12 (Cyanocobalamin) 1,000 Mcg Tab 1,000 Mcg PO DAILY 04/10/17 Reported Rytary 23.75-95 mg (Carbidopa-Levodopa) 1 Cap Cap 1 Tab PO QID 06/03/16 Reported 6A 10A 2P 6P Lexapro (Escitalopram Oxalate) 10 Mg Tab 10 Mg PO QAM 06/03/16 Reported Florinef (Fludrocortisone Acetate) 0.1 Mg Tab 0.3 Mg PO QAM 04/13/13 Reported Miralax (Polyethylene Glycol 3350) 1 Pow Pow PO QAM 01/22/13 Reported Lorazepam 0.5 Mg Tab 1 Tab PO HS 12/01/12 Reported Protonix (Pantoprazole Sodium) 40 Mg Tab 40 Mg PO QAM 12/01/12 Reported Vitamin D 1000 Unit (Cholecalciferol) 1,000 Unit Cap 2,000 Inter.unit PO QAM 09/17/11 Reported Review of Systems Constitutional: + weakness, + fatigue Eyes: No problem reported ENT: + see HPI Respiratory: No cough, No shortness of breath Cardiac: No chest pain, No palpitations Abdomen: + see HPI, No pain, No nausea, No vomiting, No diarrhea Musculoskeletal: + see HPI Female : No problem reported Neuro: No problem reported Psych: No problem reported Skin: No problem reported Physical Exam Date Time Temp Pulse Resp B/P (MAP) Pulse Ox O2 Delivery O2 Flow Rate FiO2 06/01/17 08:29 90 Room Air 06/01/17 07:56 36.7 80 22 160/83 (108) 90 Room Air 06/01/17 07:40 Room Air 06/01/17 00:30 Room Air 05/31/17 23:08 37.0 87 17 150/82 (104) 90 Room Air 05/31/17 15:35 36.8 84 16 134/78 (96) 93 Room Air 05/31/17 15:30 Room Air 05/31/17 11:47 36.7 General Appearance: WD/WN, no apparent distress Eyes: EOMI ENT: hearing grossly normal Neck: supple Respiratory/Chest: lungs clear, normal breath sounds, no respiratory distress Cardiovascular: regular rate, rhythm Abdomen: normal bowel sounds, non tender, soft Extremities: no pedal edema Neurologic/Psych: alert, normal mood/affect, oriented x 3 Skin: warm/dry Impression Patient is a 82 year old female with a history of GERD, dysphagia and esophageal stricture admitted after a fall with left hip fx status post right hip nailing with progressive dysphagia postoperatively. Plan 1. Patient is now tolerating diet better and declines an invasive GI work up in light of recent hip surgery. 2. Recommend AHA, dental soft diet with slippery consistency. 3. Safe swallowing strategies reviewed with patient. 4. Per patient request, will defer therapeutic EGD to be performed as an outpatient once acute issues are resolved. Thank you for allowing us to participate in the care of this pleasant patient. If you have any questions or concerns, please do not hesitate to contact us. Patient was discharged prior to my evaluation. Agree with ANN Bishop as above
--- NOTE | 2017-06-01 11:18 | [facility] Operative Report ---
Operative Report Operative Date Jun 01, 2017. Pre-Operative Diagnosis Left hip femoral neck fracture Post-Operative Diagnosis same as preop Procedure(s) Performed Left hip percutaneous pinning Surgeon Dr. Zimmerman Finish Sander Surgeon(s) None Estimated Blood Loss 50 ml Findings see dictated op note Fluids 600 Specimens none Drains None Anesthesia Type General Complication(s) none Disposition Recovery Room / PACU Indications The patient is an 82-year-old female who had a fall from standing height onto her left hip. She was brought to the emergency department where x-rays showed a femoral neck fracture. XRs demonstrated a valgus impacted fracture pattern. The patient was able to perform straight leg lift and was reported to be able to bear weight after her fall. I indicated the patient for a left hip closed reduction and percutaneous pinning and the risk and benefits were explained in detail. The patient was informed of the risks and benefits of surgery, which included but not limited to infection, bleeding, blood clots, damage to nerves, vessels, bone and soft tissue, dislocation, leg length discrepancy, malunion, nonunion, need for additional surgery and . The patients family collectively chose to move forward with surgical intervention and informed consent was obtained. Description of Procedure Following induction of spinal anesthesia the patient was transferred to the OR table in the supine position. She was positioned on the fracture table. Left leg was placed in longitudinal traction, and right leg was placed up in the well leg bates. Fluoroscopic images were then obtained to verify adequacy for a CRPP. Multiple fluoroscopic views confirmed a valgus-impacted femoral neck fracture. Minimal gentle reduction maneuvers were performed to align the fracture anatomically. Left hip was prepped and draped in standard sterile fashion using chlorhexidine prep. I then percutaneously placed a guidewire from the [employer] 7.3 mm cannulated screw set. I confirmed proper starting point and trajectory under multiple fluoroscopic views. Central inferior guidewire was placed first, and driven up into the femoral head into proper position. I then used the aiming drill guide to place the superioranterior and superiorposterior guidewires in an inverted triangular orientation. These were also advanced under fluoroscopic imaging to proper depth. I then measured for proper screw length. I used the cannulated drill bit over the guidewire and then placed appropriate length long-threaded 7.3 mm cannulated screws. These all had excellent bite, except for the posteriorsuperior screw, which required a washer. All screws then had excellent bite. I obtained final fluoroscopic views to ensure proper hardware length, position, and trajectory. I was satisfied with all these criteria. Wound was copiously irrigated with sterile saline. Deep fascia was closed with #1 Vicryl suture, and subcutaneous tissues closed with 2-0 Vicryl suture. Skin was closed with denise. Sterile dressings were then applied with Xeroform, sterile gauze, and Tegaderm. Drapes were then removed, patient was awakened from MAC anesthesia, transferred to [facility], and taken to the postanesthesia care unit in stable condition. There are no major complications from procedure. I was present and scrubbed for the entire procedure. I attest to the content of the Intraoperative Record and any orders documented therein. Any exceptions are noted below.
[2017-06-01 12:04] VITALS: BP 112/70; PULSE 94; TEMP 37; O2SAT 93
[2017-06-01 13:04] LABS: HEMATOCRIT 32.3 % (37-47); HEMOGLOBIN 10.5 g/dL (12.0-16.0); MEAN CELL VOLUME 88.7 fL (80-100); MEAN CORPUSCULAR HEMOGLOBIN 28.8 pg (25-34); MEAN CORPUSCULAR HGB CONC 32.5 g/dl (32-36); MEAN PLATELET VOLUME 10.4 fL (7.4-10.4); PLATELET COUNT 158 K/uL (130-400); RED CELL DISTRIBUTION WIDTH CV 13.7 % (11.5-14.5); RED CELL DISTRIBUTION WIDTH SD 44.7 fL (36.4-46.3); WHITE BLOOD COUNT 5.57 K/uL (4.8-10.8)
[2017-06-01 13:29] LABS: CALCIUM 8.7 mg/dl (8.5-10.1); CREATININE 0.73 mg/dl (0.60-1.20); POTASSIUM 3.5 mmol/L (3.5-5.1)
--- NOTE | 2017-06-01 13:45 | Discharge Instructions ---
Discharge Instructions Date of Service Jun 01, 2017. Admission Reason for Admission: Hip Fracture Discharge Discharge Diagnosis / Problem: Left hip fracture Discharge Goals Goal(s): Decrease discomfort, Improve function Activity Recommendations Activity Limitations: as noted below Lifting Limitations: gradually increase as tolerated (Partial WB LLE) . Instructions / Follow-Up Instructions / Follow-Up Followup with Ortho within 1-4 weeks Followup with PCP in 1-2 weeks Current Hospital Diet Patient's current hospital diet: AHA Diet (Heart Healthy) Discharge Diet Recommended Diet: AHA Diet (Heart Healthy) Procedures Procedures Performed: Left hip percutaneous pinning Pending Studies Studies pending at discharge: no Medical Emergencies . Who to Call and When: Medical Emergencies: If at any time you feel your situation is an emergency, please call 911 immediately. . Non-Emergent Contact Non-Emergency issues call your: Primary Care Provider Call Non-Emergent contact if: your pain is worsening . . "Provider Documentation" section prepared by Osbaldo Patel. . VTE Core Measure Inpt VTE Proph given/why not?: SCD's
[2017-06-01 13:56] VITALS: BP 112/70; PULSE 94; TEMP 37; O2SAT 93
--- NOTE | 2017-06-02 13:40 | Consultant Recommendations ---
Basket Operator Recommendations Date of Service Jun 02, 2017. Basket Operator Recommendations U DISCHARGE INSTRUCTIONS: HIP FRACTURE SELF CARE INSTRUCTIONS: A. You are to ambulate with a walker or crutches for approximately 6 weeks. B. You are PARTIAL WEIGHT BEARING on your operative lower extremity for at least 6 weeks. C. Wear low heeled shoes with non-slip soles D. Be sure that your floors are free of things that could trip you throw rugs, electrical cords, and small objects. Avoid wet and waxed floors, especially with crutches/walker/cane. E. Try to walk several times a day with rest periods between. F. You may shower 48 hours after surgery and get the incision area wet, but DO NOT soak or submerge incision area in water. (No baths, swimming pools, hot tubs ) G. You may have a large, band-aid like dressing over your incision (Aquacel). This will remain on your incision for 7 days, and then can be removed. You CAN shower with this on. If incision is leaking through the dressing, please call the office . H. Do NOT apply soap or any ointment/lotions directly over incision. I. You may use ice as needed to operative site. SPECIAL CARE INSTRUCTIONS: VERY IMPORTANT TO READ AND REVIEW A. You may be at risk for phlebitis or blood clots. a. Wear surgical stockings (KAMARI hose) for 2 weeks after surgery to improve circulation and reduce swelling. b. Take ASPIRIN 325 mg twice daily for 4 weeks or as directed. This is your blood thinner. c. If you are on Coumadin- you will have daily/weekly blood work to monitor your levels. This will be done by either your family physician/ cook dessert (if you are on Coumadin chronically) versus your orthopedic surgeon. Expect a phone call the day of or the day after your blood work is drawn to adjust your dose accordingly. B. There are a few signs you need to watch for after you are home. Call [facility] at [phone] if you experience any of the following: a. If you have a temperature of 101 degrees or higher. b. Sudden increase in pain in your hip not relieved by rest or pain medication. c. Any fluid or drainage from the incision; redness of the incision. d. Shortness of breath or chest pain. B. Please call [facility] at [phone] if you have any questions or concerns about your operation or recovery. C. Call your physician if: a. Temperature is greater than 101 degrees (F). b. Pain is not relieved by prescribed pain medications. c. Increase drainage or redness from incision. d. Unanswered questions or concerns. D. Pain Medication: a. You will be prescribed pain medication upon discharge that should last till your first post-operative appointment. b. If you experience nausea and/or skin rash, discontinue this medication and contact our office for an alternative medication. c. Caution- narcotic pain medication can cause constipation. FOLLOW UP VISIT: Please call [facility] at [phone] to schedule a follow up appointment 10-14 days from the date of your surgery date.
== END 2017-06-01 14:55 | DRG 481 ==
LOC: EDBD 13:54 → C.EDC 13:55 → C.3E 18:40 → ENRESERV 18:55
PROVIDERS: ADMIT Family Medicine; ATTEND Internal Medicine Sports Medicine
PROC: 0QSC34Z Reposition Left Lower Femur with Internal Fixation Device, Percutaneous Approach (ICD-10-PCS; principal; 2017-05-30 12:15)
DX: M80.052A Age-related osteoporosis with current pathological fracture, left femur, initial encounter for fracture (principal); I50.32 Chronic diastolic (congestive) heart failure; M25.562 Pain in left knee; R13.10 Dysphagia, unspecified; K22.2 Esophageal obstruction; G20 Parkinson's disease; M85.80 Other specified disorders of bone density and structure, unspecified site; I95.1 Orthostatic hypotension; E03.9 Hypothyroidism, unspecified; K21.9 Gastro-esophageal reflux disease without esophagitis; F41.9 Anxiety disorder, unspecified; Z79.899 Other long term (current) drug therapy; Z96.9 Presence of functional implant, unspecified; Z88.5 Allergy status to narcotic agent; Z91.048 Other nonmedicinal substance allergy status; W01.0XXA Fall on same level from slipping, tripping and stumbling without subsequent striking against object, initial encounter; Y99.8 Other external cause status

== ENCOUNTER → 2017-06-27 | Outpatient (CLI) | payer OTHER ==
[~2017-06-27] MED LIST changes: +ASPI81TA28 PO; +LEVO75TA PO; -LEVO88TA PO; -MELA1TAB5 PO; +MELO-84 PO; +METR0.754 TOP; +POTA10CA28 PO; +PRMT25 PO; +RASA0.5T PO; -RASA1TAB PO
[2017-06-27 08:41] LABS: HEMATOCRIT 36.3 % (37-47); HEMOGLOBIN 11.8 g/dL (12.0-16.0); MEAN CELL VOLUME 91.9 fL (80-100); MEAN CORPUSCULAR HEMOGLOBIN 29.9 pg (25-34); MEAN CORPUSCULAR HGB CONC 32.5 g/dl (32-36); MEAN PLATELET VOLUME 10.8 fL (7.4-10.4); PLATELET COUNT 191 K/uL (130-400); RED CELL DISTRIBUTION WIDTH CV 14.8 % (11.5-14.5); RED CELL DISTRIBUTION WIDTH SD 50.7 fL (36.4-46.3); WHITE BLOOD COUNT 3.69 K/uL (4.8-10.8)
[2017-06-27 08:45] LABS: BLOOD UREA NITROGEN 18 mg/dl (7-18); CALCIUM 9.5 mg/dl (8.5-10.1); CARBON DIOXIDE 29 mmol/L (21-32); CREATININE 0.83 mg/dl (0.60-1.20); GLUCOSE 85 mg/dl (70-99); POTASSIUM 3.8 mmol/L (3.5-5.1); SODIUM 140 mmol/L (136-145)
== END | disposition home or self-care (01) ==
LOC: C.LABFOXAE 08:19
PROVIDERS: ATTEND Internal Medicine
DX: S72.042D Displaced fracture of base of neck of left femur, subsequent encounter for closed fracture with routine healing (principal); D64.9 Anemia, unspecified

== ENCOUNTER → 2017-07-07 | Day surgery (SDC) | payer OTHER ==
[2017-06-30 15:22] VITALS: Ht 157.5 cm; Wt 68.2 kg
[~2017-07-07] VITALS: Ht 157.5 cm; Wt 68.2 kg
[~2017-07-07] MED LIST changes: +LIDOCAINE HCL 2% 2 ML VIAL (20MG/ML) ONE; -LORA0.5T12 PO; -MELO-84 PO; -METR0.754 TOP; +MIDAZOLAM HCL 1 MG/ML 2ML VIAL ONE; +ONDANSETRON INJ 2 MG/ML 2 ML VIAL ONE; +PROPOFOL IV EMULSION 10 MG/ML 20 ML VIAL IV ONE; +SODIUM CHLORIDE 0.9% 500ML 500 ML IV ONE
[2017-07-07 12:43] VITALS: TEMP 36.8
--- NOTE | 2017-07-07 13:05 | Endo History and Physical ---
History & Physical Date of Service: Jul 07, 2017. Chief Complaint: DYSPHAGIA Referring Physician: Dr Willams at [facility] History of Present Illness 82 yo CF who presents for EGD secondary to dysphagia. Past Medical History Neurological Disorder Past Surgical History Hx Cardiac Surgery: No Hx Internal Defibrillator: No Hx Pacemaker: No Hx Abdominal Surgery: Yes (GAL) Hx of Implantable Prosthesis: No Hx Post-Op Nausea and Vomiting: No Hx Cancer Surgery: No Hx Thoracic Surgery: No Hx Orthopedic: Yes (RT TKA, RT RCR, ORIF LEFT HIP) Hx Urinary Tract Surgery: No Family History None Social History Smoking Status: Never Smoker Hx Substance Use: No Hx Alcohol Use: No Allergies Coded Allergies: Grass (Verified Allergy, Unknown, SNEEZING, RUNNY EYES, 07/07/17) Codeine (Verified Adverse Reaction, Intermediate, NAUSEA, PASSED OUT, 07/07) Current Medications Reported Home Medications Medications Dose Route/Sig Max Daily Dose Days Date Category Dose Instructions Protonix (Pantoprazole Sodium) 40 Mg Tab 40 Mg PO QAM 06/30/17 Reported Aspirin Ec (Aspirin) 81 Mg Tab 81 Mg PO BID 06/30/17 Reported UNSURE IF DOSE CORRECT Micro-K Ext Rel (Potassium Chloride) 10 Meq Capcr 10 Meq PO DIRECTED 05/29/17 Reported 2 TAB IN AM 1 TAB IN PM Midodrine HCl (Midodrine) 2.5 Mg Tab 2.5 Mg PO TID 05/29/17 Reported Synthroid (Levothyroxine Sodium) 75 Mcg Tab 75 Mcg PO QPM 05/29/17 Reported Rasagiline Mesylate 0.5 Mg Tab 0.5 Mg PO QAM 05/29/17 Reported Vitamin B-12 (Cyanocobalamin) 1,000 Mcg Tab 1,000 Mcg PO DAILY 04/10/17 Reported Rytary 23.75-95 mg (Carbidopa-Levodopa) 1 Cap Cap 1 Tab PO QID 06/03/16 Reported 6A 10A 2P 6P Lexapro (Escitalopram Oxalate) 10 Mg Tab 10 Mg PO QAM 06/03/16 Reported Florinef (Fludrocortisone Acetate) 0.1 Mg Tab 3 Tab PO QAM 04/13/13 Reported Miralax (Polyethylene Glycol 3350) 1 Pow Pow PO QAM PRN 01/22/13 Reported Vitamin D 1000 Unit (Cholecalciferol) 1,000 Unit Cap 2,000 Inter.unit PO QAM 09/17/11 Reported Vital Signs Weight (Kilograms): 68.18 Height (Feet): 5 Height (Inches): 2 Date Time Temp Pulse Resp B/P (MAP) Pulse Ox O2 Delivery O2 Flow Rate FiO2 07/07/17 12:43 36.8 77 20 160/99 (119) 97 Room Air Physical Exam General Appearance: WD/WN, no apparent distress Respiratory/Chest: Auscultation: breath sounds normal Cardiovascular: Heart Auscultation: RRR Abdomen: Bowel Sounds: normal Inspection & Palpation: soft, non-distended, no tenderness, guarding & rebound Assessment and Plan Assessment: 82 yo CF who presents for EGD secondary to dysphagia. Plan: Proceed with EGD.
--- NOTE | 2017-07-07 13:34 | GI REPORT ---
Procedure Date: 07/07/2017 12:43 PM Procedure: Upper GI endoscopy Indications: Dysphagia Medicines: Monitored Anesthesia Care Complications: No immediate complications. Estimated Blood Loss: Estimated blood loss: none. Procedure: Pre-Anesthesia Assessment: - Prior to the procedure, a History and Physical was performed, and patient medications and allergies were reviewed. The patient's tolerance of previous anesthesia was also reviewed. The risks and benefits of the procedure and the sedation options and risks were discussed with the patient. All questions were answered, and informed consent was obtained. Prior Anticoagulants: The patient has taken aspirin, last dose was 1 day prior to procedure. ASA Grade Assessment: III - A patient with severe systemic disease. After reviewing the risks and benefits, the patient was deemed in satisfactory condition to undergo the procedure. After obtaining informed consent, the endoscope was passed under direct vision. Throughout the procedure, the patient's blood pressure, pulse, and oxygen saturations were monitored continuously. The Scope was introduced through the mouth, and advanced to the second part of duodenum. The upper GI endoscopy was accomplished without difficulty. The patient tolerated the procedure well. Findings: Patchy candidiasis was found in the upper third of the esophagus. Cells for cytology were obtained by brushing. A moderate Schatzki ring (acquired) was found at the gastroesophageal junction. A TTS dilator was passed through the scope. Dilation with a 15-16.5-18 mm balloon dilator was performed to 18 mm. The dilation site was examined and showed mild improvement in luminal narrowing. There was decreased esophageal motility noted throughout this procedure. A small hiatal hernia was present. The examined duodenum was normal. Impression: - Monilial esophagitis. Cells for cytology obtained. - Moderate Schatzki ring. Dilated. - Small hiatal hernia. - Normal examined duodenum. Recommendation: - Resume previous diet. - Continue present medications. - Await results from esophageal brushings. - Return to GI office as previously scheduled. Santana Cornejo, DO 07/07/2017 1:33:17 PM This report has been signed electronically. Note Initiated On: 07/07/2017 12:43 PM I attest to the content of the Intraoperative Record and orders documented therein, exceptions below
--- NOTE | 2017-07-07 13:35 | Discharge Instructions ---
Endoscopy Patient Instructions Date / Procedure(s) Performed Jul 07, 2017. EGD Allergy Information Coded Allergies: Grass (Verified Allergy, Unknown, SNEEZING, RUNNY EYES, 07/07/17) Codeine (Verified Adverse Reaction, Intermediate, NAUSEA, PASSED OUT, 07/07) Discharge Date / Findings Jul 07, 2017. Schatzki's Ring s/p dilation Hiatal hernia Brushings for Meena esophagitis Medication Instructions Stopped Medication(s): ASA 81 mg OK to resume all medications today as prescribed Reported Home Medications Medications Dose Route/Sig Max Daily Dose Days Date Category Dose Instructions Protonix (Pantoprazole Sodium) 40 Mg Tab 40 Mg PO QAM 06/30/17 Reported Aspirin Ec (Aspirin) 81 Mg Tab 81 Mg PO BID 06/30/17 Reported UNSURE IF DOSE CORRECT Micro-K Ext Rel (Potassium Chloride) 10 Meq Capcr 10 Meq PO DIRECTED 05/29/17 Reported 2 TAB IN AM 1 TAB IN PM Midodrine HCl (Midodrine) 2.5 Mg Tab 2.5 Mg PO TID 05/29/17 Reported Synthroid (Levothyroxine Sodium) 75 Mcg Tab 75 Mcg PO QPM 05/29/17 Reported Rasagiline Mesylate 0.5 Mg Tab 0.5 Mg PO QAM 05/29/17 Reported Vitamin B-12 (Cyanocobalamin) 1,000 Mcg Tab 1,000 Mcg PO DAILY 04/10/17 Reported Rytary 23.75-95 mg (Carbidopa-Levodopa) 1 Cap Cap 1 Tab PO QID 06/03/16 Reported 6A 10A 2P 6P Lexapro (Escitalopram Oxalate) 10 Mg Tab 10 Mg PO QAM 06/03/16 Reported Florinef (Fludrocortisone Acetate) 0.1 Mg Tab 3 Tab PO QAM 04/13/13 Reported Miralax (Polyethylene Glycol 3350) 1 Pow Pow PO QAM PRN 01/22/13 Reported Vitamin D 1000 Unit (Cholecalciferol) 1,000 Unit Cap 2,000 Inter.unit PO QAM 09/17/11 Reported Provider Instructions Activity Restrictions - No exercising or heavy lifting for 24 hours. - Do not drink alcohol the day of the procedure. - Do not drive a car or operate machinery until the day after the procedure. - Do not make any important decisions or sign important papers in 24 hours after the procedure. Following Day: - Return to full activity which may include returning to work/school. Diet Start your diet with liquids and light foods (jello, soup, juice, toast). Then eat your usual diet if not nauseated. Treatment For Common After Affects For mild abdominal pain, bloating, or excessive gas: - Rest - Eat lightly - Lie on right side Follow-Up Information Follow-up with Dr Willams at [facility] as scheduled Anesthesia Information What You Should Know You have had a procedure that required some medicine to reduce anxiety and discomfort. This treatment is called moderate sedation. After receiving the treatment, you may be sleepy, but you will be able to breathe on your own. The effects of the treatment may last for several hours. Follow these instructions along with Activity/Diet recommendations noted above: * Do NOT do anything where dizziness or clumsiness would be dangerous. * Rest quietly at home today, then you can be up and about tomorrow. * Have a responsible person stay with you the rest of today. * You may have had an I.V. today. If so, you may take the dressing off later today. Recommendations Call your doctor if: * Trouble breathing * Continuous vomiting for more than 24 hours * Temperature above 101 degrees * Severe abdominal pain or bloating * Pain not relieved by pain medicine ordered * There is increased drainage or redness from any incision * A large amount of rectal bleeding greater than 2-3 tablespoons. (If you had a polyp/s removed or have hemorrhoids, a small amount of blood - from the rectum is to be expected.) * You have any unanswered questions or concerns. IN THE EVENT OF A SERIOUS EMERGENCY, GO TO THE NEAREST EMERGENCY ROOM Your discharge instructions were prepared by provider Santana Cornejo. Patient Instructions Signature Page Ellen Cabrera Patient (or Guardian) Signature/Date: I have read and understand the instructions given to me by my caregivers. Caregiver/RN/Doctor Signature/Date: The above-named patient and/or guardian has received patient instructions on this date. + Original Patient Signature Page (only) stays with chart. Please make copy for patient.
--- NOTE | 2017-07-07 14:00 | Anesthesiology Progress Note ---
Anesthesia Post Op Note Date & Time Jul 07, 2017 at 14:00 Vital Signs Pain Intensity: 0 Vital Signs Past 12 Hours Date Time Temp Pulse Resp B/P (MAP) Pulse Ox O2 Delivery O2 Flow Rate FiO2 07/07/17 13:48 74 18 126/88 (101) 98 Room Air 07/07/17 13:33 70 18 137/86 (103) 98 Room Air 07/07/17 12:43 36.8 77 20 160/99 (119) 97 Room Air Notes Mental Status: alert / awake / arousable, participated in evaluation Pt Amnestic to Procedure: Yes Nausea / Vomiting: adequately controlled Pain: adequately controlled Airway Patency, RR, SpO2: stable & adequate BP & HR: stable & adequate Hydration State: stable & adequate Anesthetic Complications: no major complications apparent
[2017-07-07 14:03] VITALS: BP 153/89; PULSE 76; O2SAT 98
== END | disposition home or self-care (01) ==
LOC: C.GI 12:16
PROVIDERS: ATTEND Internal Medicine
DX: R13.10 Dysphagia, unspecified (principal); K22.2 Esophageal obstruction; K44.9 Diaphragmatic hernia without obstruction or gangrene; I10 Essential (primary) hypertension; M19.90 Unspecified osteoarthritis, unspecified site; Z85.828 Personal history of other malignant neoplasm of skin; Z88.5 Allergy status to narcotic agent; Z79.82 Long term (current) use of aspirin; Z90.49 Acquired absence of other specified parts of digestive tract; Z96.651 Presence of right artificial knee joint

== ENCOUNTER → 2017-07-11 | Outpatient (CLI) | payer OTHER ==
[~2017-07-11] MED LIST changes: -LIDOCAINE HCL 2% 2 ML VIAL (20MG/ML) ONE; -MIDAZOLAM HCL 1 MG/ML 2ML VIAL ONE; -ONDANSETRON INJ 2 MG/ML 2 ML VIAL ONE; -PROPOFOL IV EMULSION 10 MG/ML 20 ML VIAL IV ONE; -SODIUM CHLORIDE 0.9% 500ML 500 ML IV ONE
[2017-07-11 09:03] LABS: HEMATOCRIT 38.1 % (37-47); HEMOGLOBIN 12.3 g/dL (12.0-16.0); MEAN CELL VOLUME 90.9 fL (80-100); MEAN CORPUSCULAR HEMOGLOBIN 29.4 pg (25-34); MEAN CORPUSCULAR HGB CONC 32.3 g/dl (32-36); MEAN PLATELET VOLUME 10.5 fL (7.4-10.4); PLATELET COUNT 206 K/uL (130-400); RED CELL DISTRIBUTION WIDTH CV 14.4 % (11.5-14.5); RED CELL DISTRIBUTION WIDTH SD 48.3 fL (36.4-46.3)
== END ==
LOC: C.LABFOXAE 08:49 → EDSTATUS 07-19 10:24
PROVIDERS: ATTEND Internal Medicine Hospice and Palliative Medicine
DX: D64.9 Anemia, unspecified (principal)

== ENCOUNTER → 2017-07-18 | Outpatient (CLI) | payer OTHER ==
[2017-07-18 11:46] LABS: HEMATOCRIT 40.7 % (37-47); HEMOGLOBIN 13.1 g/dL (12.0-16.0); MEAN CELL VOLUME 91.5 fL (80-100); MEAN CORPUSCULAR HEMOGLOBIN 29.4 pg (25-34); MEAN CORPUSCULAR HGB CONC 32.2 g/dl (32-36); MEAN PLATELET VOLUME 11.2 fL (7.4-10.4); PLATELET COUNT 211 K/uL (130-400); RED CELL DISTRIBUTION WIDTH CV 14.3 % (11.5-14.5); RED CELL DISTRIBUTION WIDTH SD 48.4 fL (36.4-46.3); WHITE BLOOD COUNT 4.56 K/uL (4.8-10.8)
== END | disposition home or self-care (01) ==
LOC: C.LABFOXDH 09:35 → EDSTATUS 07-19 10:22
PROVIDERS: ATTEND Internal Medicine Hospice and Palliative Medicine
DX: D64.9 Anemia, unspecified (principal)

== ENCOUNTER → 2017-07-25 | Outpatient (CLI) | payer OTHER ==
[2017-07-25 08:06] LABS: HEMATOCRIT 38.9 % (37-47); HEMOGLOBIN 12.6 g/dL (12.0-16.0); MEAN CELL VOLUME 89.8 fL (80-100); MEAN CORPUSCULAR HEMOGLOBIN 29.1 pg (25-34); MEAN CORPUSCULAR HGB CONC 32.4 g/dl (32-36); MEAN PLATELET VOLUME 11.1 fL (7.4-10.4); PLATELET COUNT 192 K/uL (130-400); RED CELL DISTRIBUTION WIDTH CV 13.8 % (11.5-14.5); RED CELL DISTRIBUTION WIDTH SD 46.1 fL (36.4-46.3); WHITE BLOOD COUNT 4.52 K/uL (4.8-10.8)
== END ==
LOC: C.LABFOXDH 07:55
PROVIDERS: ATTEND Internal Medicine Hospice and Palliative Medicine
DX: D64.9 Anemia, unspecified (principal)

== ENCOUNTER → 2017-08-01 | Outpatient (CLI) | payer OTHER | END | disposition home or self-care (01) | LOC: C.LABFOXDH 08:33 | PROVIDERS: ATTEND Internal Medicine Hospice and Palliative Medicine | DX: D64.9 Anemia, unspecified (principal) ==

== ENCOUNTER → 2017-08-04 | Outpatient (CLI) | payer OTHER ==
[2017-08-04 09:49] LABS: BLOOD UREA NITROGEN 18 mg/dl (7-18); CALCIUM 9.3 mg/dl (8.5-10.1); CARBON DIOXIDE 28 mmol/L (21-32); CREATININE 1.08 mg/dl (0.60-1.20); GLUCOSE 85 mg/dl (70-99); POTASSIUM 3.2 mmol/L (3.5-5.1); SODIUM 140 mmol/L (136-145)
== END | disposition home or self-care (01) ==
LOC: C.LABFOXDH 09:15
PROVIDERS: ATTEND Internal Medicine
DX: E03.9 Hypothyroidism, unspecified (principal); M81.0 Age-related osteoporosis without current pathological fracture

== ENCOUNTER → 2017-08-08 | Outpatient (CLI) | payer OTHER ==
[2017-08-08 09:25] LABS: HEMOGLOBIN 12.5 g/dL (12.0-16.0); MEAN CELL VOLUME 89.2 fL (80-100); MEAN CORPUSCULAR HEMOGLOBIN 28.6 pg (25-34); MEAN CORPUSCULAR HGB CONC 32.1 g/dl (32-36); MEAN PLATELET VOLUME 10.8 fL (7.4-10.4); PLATELET COUNT 190 K/uL (130-400); RED CELL DISTRIBUTION WIDTH CV 13.7 % (11.5-14.5); RED CELL DISTRIBUTION WIDTH SD 45.3 fL (36.4-46.3); WHITE BLOOD COUNT 4.38 K/uL (4.8-10.8)
== END | disposition home or self-care (01) ==
LOC: C.LABFOXDH 08:27
PROVIDERS: ATTEND Internal Medicine Hospice and Palliative Medicine
DX: D64.9 Anemia, unspecified (principal)

== ENCOUNTER → 2017-08-12 | Outpatient (CLI) | payer OTHER ==
[2017-08-12 11:09] LABS: BLOOD UREA NITROGEN 20 mg/dl (7-18); CALCIUM 9.7 mg/dl (8.5-10.1); CARBON DIOXIDE 28 mmol/L (21-32); CREATININE 0.82 mg/dl (0.60-1.20); GLUCOSE 86 mg/dl (70-99); POTASSIUM 3.8 mmol/L (3.5-5.1); SODIUM 138 mmol/L (136-145)
== END | disposition home or self-care (01) ==
LOC: C.LABFOXDH 07:49
PROVIDERS: ATTEND Internal Medicine
DX: E78.6 Lipoprotein deficiency (principal)

== ENCOUNTER → 2017-08-16 | Outpatient (CLI) | payer OTHER ==
[2017-08-16 09:34] LABS: HEMATOCRIT 38.6 % (37-47); HEMOGLOBIN 12.5 g/dL (12.0-16.0); MEAN CELL VOLUME 89.6 fL (80-100); MEAN CORPUSCULAR HGB CONC 32.4 g/dl (32-36); MEAN PLATELET VOLUME 10.5 fL (7.4-10.4); PLATELET COUNT 186 K/uL (130-400); RED CELL DISTRIBUTION WIDTH CV 13.8 % (11.5-14.5); RED CELL DISTRIBUTION WIDTH SD 45.5 fL (36.4-46.3); WHITE BLOOD COUNT 4.43 K/uL (4.8-10.8)
== END | disposition home or self-care (01) ==
LOC: C.LABFOXDH 09:17
PROVIDERS: ATTEND Internal Medicine Hospice and Palliative Medicine
DX: D64.9 Anemia, unspecified (principal)

== ENCOUNTER → 2017-08-22 | Outpatient (CLI) | payer OTHER ==
[2017-08-22 08:19] LABS: HEMATOCRIT 38.1 % (37-47); HEMOGLOBIN 12.3 g/dL (12.0-16.0); MEAN CORPUSCULAR HEMOGLOBIN 28.7 pg (25-34); MEAN CORPUSCULAR HGB CONC 32.3 g/dl (32-36); MEAN PLATELET VOLUME 10.3 fL (7.4-10.4); PLATELET COUNT 193 K/uL (130-400); RED CELL DISTRIBUTION WIDTH SD 45.6 fL (36.4-46.3); WHITE BLOOD COUNT 4.44 K/uL (4.8-10.8)
== END | disposition home or self-care (01) ==
LOC: C.LABFOXDH 07:59
PROVIDERS: ATTEND Internal Medicine
DX: D64.9 Anemia, unspecified (principal)

== ENCOUNTER → 2017-08-29 | Outpatient (CLI) | payer OTHER ==
[2017-08-29 09:32] LABS: HEMATOCRIT 40.7 % (37-47); HEMOGLOBIN 13.1 g/dL (12.0-16.0); MEAN CELL VOLUME 88.9 fL (80-100); MEAN CORPUSCULAR HEMOGLOBIN 28.6 pg (25-34); MEAN CORPUSCULAR HGB CONC 32.2 g/dl (32-36); MEAN PLATELET VOLUME 10.9 fL (7.4-10.4); PLATELET COUNT 185 K/uL (130-400); RED CELL DISTRIBUTION WIDTH CV 13.9 % (11.5-14.5); RED CELL DISTRIBUTION WIDTH SD 45.1 fL (36.4-46.3); WHITE BLOOD COUNT 4.86 K/uL (4.8-10.8)
== END | disposition home or self-care (01) ==
LOC: C.LABFOXDH 08:50
PROVIDERS: ATTEND Internal Medicine
DX: D64.9 Anemia, unspecified (principal)

== ENCOUNTER → 2017-09-05 | Outpatient (CLI) | payer OTHER ==
[2017-09-05 09:05] LABS: HEMATOCRIT 37.5 % (37-47); HEMOGLOBIN 12.4 g/dL (12.0-16.0); MEAN CELL VOLUME 88.7 fL (80-100); MEAN CORPUSCULAR HEMOGLOBIN 29.3 pg (25-34); MEAN CORPUSCULAR HGB CONC 33.1 g/dl (32-36); MEAN PLATELET VOLUME 10.7 fL (7.4-10.4); PLATELET COUNT 184 K/uL (130-400); RED CELL DISTRIBUTION WIDTH SD 45.5 fL (36.4-46.3); WHITE BLOOD COUNT 4.35 K/uL (4.8-10.8)
== END | disposition home or self-care (01) ==
LOC: C.LABFOXDH 08:49
PROVIDERS: ATTEND Internal Medicine
DX: D64.9 Anemia, unspecified (principal)

== ENCOUNTER → 2017-11-07 | Outpatient (CLI) | payer OTHER ==
[2017-11-07 09:48] LABS: HEMOGLOBIN 12.2 g/dL (12.0-16.0); MEAN CELL VOLUME 89.8 fL (80-100); MEAN CORPUSCULAR HEMOGLOBIN 28.8 pg (25-34); MEAN CORPUSCULAR HGB CONC 32.1 g/dl (32-36); MEAN PLATELET VOLUME 10.8 fL (7.4-10.4); PLATELET COUNT 188 K/uL (130-400); RED CELL DISTRIBUTION WIDTH CV 15.1 % (11.5-14.5); RED CELL DISTRIBUTION WIDTH SD 49.8 fL (36.4-46.3); WHITE BLOOD COUNT 4.68 K/uL (4.8-10.8)
== END ==
LOC: C.LABFOXDH 09:30
PROVIDERS: ATTEND Internal Medicine
DX: D64.9 Anemia, unspecified (principal)

== ENCOUNTER → 2017-11-14 | Outpatient (CLI) | payer OTHER ==
[2017-11-14 09:57] LABS: HEMATOCRIT 38.5 % (37-47); HEMOGLOBIN 12.3 g/dL (12.0-16.0); MEAN CORPUSCULAR HEMOGLOBIN 28.7 pg (25-34); MEAN CORPUSCULAR HGB CONC 31.9 g/dl (32-36); MEAN PLATELET VOLUME 10.6 fL (7.4-10.4); PLATELET COUNT 198 K/uL (130-400); RED CELL DISTRIBUTION WIDTH CV 15.3 % (11.5-14.5); RED CELL DISTRIBUTION WIDTH SD 50.4 fL (36.4-46.3); WHITE BLOOD COUNT 5.14 K/uL (4.8-10.8)
== END | disposition home or self-care (01) ==
LOC: C.LABFOXDH 08:36
PROVIDERS: ATTEND Internal Medicine
DX: D64.9 Anemia, unspecified (principal)

== ENCOUNTER → 2017-11-21 | Outpatient (CLI) | payer OTHER ==
[2017-11-21 09:31] LABS: HEMATOCRIT 40.6 % (37-47); MEAN CORPUSCULAR HEMOGLOBIN 28.8 pg (25-34); MEAN PLATELET VOLUME 10.7 fL (7.4-10.4); PLATELET COUNT 203 K/uL (130-400); RED CELL DISTRIBUTION WIDTH CV 14.9 % (11.5-14.5); RED CELL DISTRIBUTION WIDTH SD 49.2 fL (36.4-46.3); WHITE BLOOD COUNT 4.73 K/uL (4.8-10.8)
== END | disposition home or self-care (01) ==
LOC: C.LABFOXDH 08:45
PROVIDERS: ATTEND Internal Medicine
DX: D64.9 Anemia, unspecified (principal)

== ENCOUNTER → 2017-11-28 | Outpatient (CLI) | payer OTHER ==
[2017-11-28 08:50] LABS: HEMATOCRIT 38.4 % (37-47); HEMOGLOBIN 12.3 g/dL (12.0-16.0); MEAN CELL VOLUME 90.4 fL (80-100); MEAN CORPUSCULAR HEMOGLOBIN 28.9 pg (25-34); MEAN PLATELET VOLUME 10.8 fL (7.4-10.4); PLATELET COUNT 201 K/uL (130-400); RED CELL DISTRIBUTION WIDTH CV 14.8 % (11.5-14.5); RED CELL DISTRIBUTION WIDTH SD 48.6 fL (36.4-46.3); WHITE BLOOD COUNT 4.67 K/uL (4.8-10.8)
== END ==
LOC: C.LABFOXDH 08:25
PROVIDERS: ATTEND Internal Medicine
DX: D64.9 Anemia, unspecified (principal)

== ENCOUNTER → 2017-12-05 | Outpatient (CLI) | payer OTHER ==
[2017-12-05 10:05] LABS: HEMATOCRIT 37.8 % (37-47); HEMOGLOBIN 12.1 g/dL (12.0-16.0); MEAN CELL VOLUME 90.4 fL (80-100); MEAN CORPUSCULAR HEMOGLOBIN 28.9 pg (25-34); MEAN PLATELET VOLUME 11.1 fL (7.4-10.4); PLATELET COUNT 192 K/uL (130-400); RED CELL DISTRIBUTION WIDTH CV 14.7 % (11.5-14.5); RED CELL DISTRIBUTION WIDTH SD 48.4 fL (36.4-46.3); WHITE BLOOD COUNT 4.25 K/uL (4.8-10.8)
== END | disposition home or self-care (01) ==
LOC: C.LABFOXDH 09:38
PROVIDERS: ATTEND Internal Medicine
DX: D64.9 Anemia, unspecified (principal)

== ENCOUNTER → 2017-12-06 | Outpatient (CLI) | payer OTHER ==
--- NOTE | 2017-12-06 15:44 | DIAGNOSTIC IMAGING REPORT ---
(BARIUM SWALLOW) ESOPHAGUS CLINICAL HISTORY: 82 years-old Female presenting with history of esophageal dilatation. TECHNIQUE: A standard air contrast barium esophagram is performed. Multiple spot images of the esophagus are acquired both upright and prone. COMPARISON: 05/03/2013. FINDINGS: The patient was able to ingest barium. The esophagus is markedly dilated throughout with smooth tapering at the gastroesophageal junction. Normal mucosal pattern. No evidence of intrinsic or extrinsic mass lesion. No aspiration observed. The gastroesophageal junction intermittently distended though incompletely. No gastroesophageal reflux could be elicited despite provocative maneuvers. The patient ingested a barium pill though the pill was not visualized passing through the gastroesophageal junction. Fluoroscopy dosage (mGy): Not available. Fluoroscopy time: 2.9 minutes. Number or time of fluoroscopic spot images: 17. IMPRESSION: Findings consistent with achalasia. This can be primary or secondary. Correlate clinically. Electronically signed by: Yaniv Desai M.D. 12/06/2017 10:24 AM Dictated Date/Time: 12/06/2017 10:10 AM
== END | disposition home or self-care (01) ==
LOC: C.RAD 09:10
PROVIDERS: ATTEND Internal Medicine Gastroenterology
DX: R13.10 Dysphagia, unspecified (principal)